=== PATIENT | male | born 1930 | race Caucasian/White ===

== ENCOUNTER 2017-11-18 20:05 | Inpatient (IN) | payer MEDICARE ==
[~2017-11-18 20:05] MED LIST: ISOVUE-370 76%-LOCM 1 ML ONE
[2017-11-18] MEDS ORDERED: Nitroglycerin 0.4 MG TAB (25 Tab Bottle) ONE (21:38)
[2017-11-18 22:05] LABS: CKMB 0.7 ng/mL (0-6.6); Troponin I Less than 0.010 ng/mL (< 0.028)
[2017-11-18] MEDS ORDERED: Azithromycin 500 MG VIAL ONE (22:17)
[2017-11-18 22:46] LABS: Bilirubin Negative (Negative); Blood, Urine Trace (Negative); Clarity CLEAR (Clear); Glucose, Urine (Dipstick) Negative (Negative); Leukocyte Negative (Negative); Nitrite Negative (Negative); Protein, Urine (Dipstick) Negative (Neg-Trace); Urobilinogen 0.2 mg/dL (0.2-1.0)
[2017-11-18 22:49] LABS: Bacteria/HPF None Seen HPF (None Seen); Hyaline Casts/LPF 0-3 HYALINE CAST LPF (0-3 Hyaline); Pathc Cast-AUWi Flag 0.14 (0-2.49); RBC/HPF 0-3 HPF (0-3); Squamous Epithelial None Seen HPF (0-3); WBC/HPF None Seen HPF (0-3)
--- NOTE | 2017-11-18 23:09 | CT ---
CT ABDOMEN AND PELVIS WITH CONTRAST 11/18/17 COMPARISON: None. HISTORY: Difficulty breathing. Abdominal swelling. TECHNIQUE: Multiple contiguous axial images were obtained in a CT of the abdomen and pelvis with contrast. Coron al reformats were performed. FINDINGS: The gallbladder is not seen and is either contracted or has been removed. There are nonobstructing ca lcifications in both kidneys. These calcifications may be vascular. Evaluation is limited secondary t o motion artifacts. The adrenal glands, spleen, and pancreas are unremarkable. No free air, free flui d, or stranding changes are seen in the abdomen or pelvis. There is scattered diverticula in the colon. The small bowel is normal in caliber without significant dilation. The appendix is not definitely seen. The prostate is enlarged. No abdominal or pelvis lymphadenopathy. Atherosclerotic calcifications are seen in the aorta. Air space opacity is seen in the right middle and lower lobes consistent with right sided infiltrates . No pleural effusion is seen. Degenerative changes are seen in the spine. The abdominal wall soft ti ssues are unremarkable. IMPRESSION: 1. No evidence of acute intra-abdominal/pelvic abnormality. 2. Diverticulosis. 3. Right sided multifocal pneumonia. POS: [facility]
[2017-11-19] MEDS ORDERED: Acetaminophen 325 MG TAB PO PRN (00:50)
[2017-11-19] MEDS ORDERED: Guaifenesin DM 100-10/5 ML UDCUP PO PRN (00:50)
[2017-11-19] MEDS ORDERED: Ondansetron HCl/PF 4 MG/2 ML Vial IVP PRN (00:50)
[2017-11-19] MEDS ORDERED: Senokot 8.6 MG TAB PO PRN (00:50)
[2017-11-19] MEDS ORDERED: Azithromycin 500 MG in Sodium Chloride 0.9% 250 ML 250 ML IVPB SCH ×2 (01:00→01:30)
[2017-11-19 01:11] VITALS: BMI 22.5
[2017-11-19] MEDS: cefTRIAXone\\ROCEPHIN 1 GM in Sodium Chloride 0.9% 100 ML IVPB SCH (01:29)
--- NOTE | 2017-11-19 05:15 | HP ---
REASON FOR ADMISSION: Pneumonia, chronic obstructive pulmonary disease exacerbation. 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 He also developed shaking chills. He felt nauseated the whole day. He tried taking Symbicort inhaler and albuterol inhaler at home, which did not give him any relief. Finally, he was taken to [facility], from where he was transferred here. No complaints of fever but had temperature of 100 degrees at [facility]. Has cough with expectoration of clear sputum per patient. Does not see a travel occupational therapist on the outside. PAST MEDICAL AND SURGICAL HISTORY: History of COPD, hypertension, dyslipidemia , benign prostatic hypertrophy, CABG done in 2007, cholecystectomy, appendectomy , tonsillectomy. CURRENT MEDICATIONS: Patient is on aspirin 81 mg p.o. daily, Norvasc 5 mg p.o. daily, Coreg 6.25 mg p.o. twice daily, atorvastatin 80 mg p.o. daily, Flomax 0.4 mg p.o. daily, isosorbide mononitrate 120 mg twice daily, Nexium 40 mg daily , lisinopril 10 mg q.p.m. ALLERGIES: PHENYLEPHRINE. PERSONAL HISTORY: Quit smoking in the year 1999, but has smoked nearly a pack and a half per day for more than 40 years. Does not abuse alcohol or drugs and lives with his daughter. FAMILY HISTORY: Mother lived up to 72 years and of old age. Father got killed in a motor vehicle accident at the age of 52 years. CODE STATUS: FULL. Power of district attorney, Ms. Cheryl Batista. REVIEW OF SYSTEMS: The following complete review of systems was negative, unless otherwise mentioned in the HPI or below: Constitutional: Weight loss or gain, ability to conduct usual activities. Skin: Rash, itching. Eyes: Double vision, pain. ENT/Mouth: Nose bleeding, neck stiffness, pain, tenderness. Cardiovascular: Palpitations, dyspnea on exertion, orthopnea. Respiratory: Shortness of breath, wheezing, cough, hemoptysis, fever, or night sweats. Gastrointestinal: Poor appetite, abdominal pain, heartburn, nausea, vomiting, constipation, or diarrhea. Genitourinary: Urgency, frequency, dysuria, nocturia. Musculoskeletal: Pain, swelling. Neurologic/Psychiatric: Anxiety, depression. Allergy/Immunologic: Skin rash, bleeding tendency. PHYSICAL EXAMINATION: GENERAL: Patient is an 87-year-old male who is currently not in any acute distress. VITAL SIGNS: Blood pressure 126/62, pulse 100 per minute, respiratory rate 20 per minute, temperature 97.5 degrees here and was 100 degrees at [facility] , saturating 92% on room air. NECK: Supple, no elevated JVD. HEENT: Eyes, extraocular muscles intact. Pupils reacting to light. Oral cavity mucous membranes are moist. No exudates or congestion. CARDIOVASCULAR SYSTEM: S1, S2 heard. Regular rhythm. RESPIRATORY SYSTEM: Air entry 1+ bilateral. Scattered wheezes plus bilaterally. ABDOMEN: Soft, bowel sounds heard. No tenderness, rigidity, or guarding. EXTREMITIES: No peripheral edema or calf tenderness. VASCULAR SYSTEM: Peripheral pulses 1+ bilateral. No ischemic ulcerations or gangrene. CENTRAL NERVOUS SYSTEM: No gross focal deficits noted. Patient is alert, awake , and oriented well. PSYCHIATRIC SYSTEM: Patient's mood is euthymic. No hallucinations or delusions. LABORATORY DATA AND X-RAY FINDINGS: CT of the abdomen and pelvis done shows no acute abnormality in the abdomen or pelvis, but he was incidentally noted to have right-sided multifocal pneumonia. There is also diverticulosis. Single- view chest x-ray done showed no acute cardiopulmonary abnormalities. Troponin x2 is negative. Total bilirubin 1.9, BNP 143. AST, ALT within normal limits. Albumin 3.8, serum bicarbonate 21, BUN 18, creatinine 0.9, glucose 106. Lactic acid is 2.6. CK-MB is 0.9, magnesium is 1.2. White count of 13, H&H 13 and 40 , platelet count 193 with 88% neutrophils, MCV is 90. CLINICAL IMPRESSION AND PLAN: Patient will be admitted to medical floor for right lung pneumonia with mild chronic obstructive pulmonary disease exacerbation as well. He will be placed on ceftriaxone and Zithromax. Patient has heavy history of smoking in the past. He is not on home oxygen or steroids. He rarely uses albuterol inhalers at home. In view of this, he will be on DuoNebs q.6 hourly. We will also consult Dr. Castañeda who is on-call for Pulmonology. We will continue his aspirin, Lipitor, Norvasc, Imdur, Flomax as before. We will continue to closely monitor him on medical floor. I have given complete updates to patient's daughter, Ms. Luna who is here at bedside. Please note I have seen and examined patient on 11/18/2017 Code status was discussed and he is a FULL CODE for now. MATT
[2017-11-19 05:24] LABS: Anion Gap 15 mmol/L (10-20); BUN (Urea Nitrogen) 16 mg/dL (8.4-25.7); Calc. Creatinine Clearance 50 mL/min (70-130); Calcium 8.9 mg/dL (7.8-10.44); Carbon Dioxide 25 mmol/L (23-31); Chloride 95 mmol/L (98-107); Estimated GFR-MDRD 75; Glucose 89 mg/dL (83-110); Potassium 4.2 mmol/L (3.5-5.1); Sodium 131 mmol/L (136-145)
[2017-11-19 06:02] LABS: Legionella Urinary Ag Negative (Negative); Strep pneumo Urine Ag NEGATIVE (NEGATIVE)
[2017-11-19 06:09] LABS: Band 28 % (5-11); Hemoglobin 14.3 g/dL (14.0-18.0); Lymphocytes 5 % (21-51); MDiff Complete? YES; Mean Corpuscular HGB CONC 33.7 g/dL (32.0-36.0); Mean Corpuscular Hemoglobin 32.6 pg (27.0-31.0); Mean Corpuscular Volume 96.9 fl (80.0-94.0); Mean Platelet Volume 6.7 fL (7.4-10.4); Monocytes 3 % (0-10); Neutrophil 64 % (42-75); Platelet Count 196 thou/uL (130-400); RBC Distribution Width 12.3 % (11.5-14.5); Red Blood Cell (RBC) Count 4.38 mill/uL (4.70-6.10); White Blood Cell (WBC) Count 19.2 thou/uL (4.8-10.8)
[2017-11-19] MEDS: Atorvastatin Calcium 40 MG TAB PO SCH (08:47)
[2017-11-19] MEDS: Carvedilol 6.25 MG TAB PO SCH ×2 (08:47→17:29)
[2017-11-19] MEDS: Polyethylene Glycol 3350 17 GM Packet PO SCH (08:47)
[2017-11-19] MEDS: Aspirin 81 mg Enteric Coated Tablet PO SCH (08:47)
[2017-11-19] MEDS: Tamsulosin HCl 0.4 MG CAP PO SCH (08:47)
[2017-11-19] MEDS: Enoxaparin Sodium 40 MG/0.4 ML SYRINGE SC SCH (08:47)
[2017-11-19] MEDS: Senokot S 8.6-50 MG TAB PO SCH (08:48)
[2017-11-19] MEDS: Amlodipine 5 MG TAB PO SCH (08:48)
[2017-11-19] MEDS ORDERED: Famotidine 20 MG TAB PO SCH ×2 (09:00)
[2017-11-19] MEDS ORDERED: Carvedilol 25 MG TAB PO SCH (09:00)
[2017-11-19] MEDS ORDERED: Albuterol Sulfate 2.5 mg/3 ml Neb NEB PRN (10:03)
--- NOTE | 2017-11-19 10:04 | PDOC.PN ---
- Subjective Encounter Start Date: 11/19/17 Encounter Start Time: 10:08 patient seen and examined following overnight admission for acute hypoxic respiratory failure/multifocal PNA and COPD. Doing much better this a.m. Has no complaints and no acute overnight events. - Objective Resuscitation Status: Resuscitation Status FULL:Full Resuscitation MAR Reviewed: Yes Vital Signs & Weight: Vital Signs (12 hours) Temp Pulse Resp BP Pulse Ox 11/19/17 08:55 98.9 F 100 22 H 143/74 H 95 11/19/17 08:48 95 11/19/17 08:00 98.9 F 100 22 H 95 11/19/17 06:34 95 16 92 L 11/19/17 04:42 99 F 100 16 147/65 H 11/19/17 01:16 92 14 95 11/18/17 23:59 99.2 F 101 H 20 136/68 92 L 11/18/17 23:45 99.2 F 101 H 20 92 L Weight Weight 148 lb I&O: 11/18/17 11/19/17 11/20/17 06:59 06:59 06:59 Intake Total 580 Output Total 350 Balance 230 Result Diagrams: 11/19/17 00:56 11/19/17 00:56 Phys Exam - Physical Examination Constitutional: NAD HEENT: PERRLA, moist MMs, sclera anicteric, oral pharynx no lesions Neck: no nodes, no JVD, supple, full ROM Respiratory: no wheezing, no rhonchi Reduced breath sounds b/l with mild rales Cardiovascular: RRR, no significant murmur, no rub Gastrointestinal: soft, non-tender, no distention, positive bowel sounds Musculoskeletal: no edema, pulses present Neurological: non-focal, moves all 4 limbs Psychiatric: normal affect, A&O x 3 Dx/Plan (1) Acute respiratory failure with hypoxia Code(s): J96.01 - ACUTE RESPIRATORY FAILURE WITH HYPOXIA Status: Acute Comment: 2/2 multifocal PNA. (2) Multifocal pneumonia Code(s): J18.9 - PNEUMONIA, UNSPECIFIED ORGANISM Status: Acute Comment: R sided. (3) COPD (chronic obstructive pulmonary disease) Status: Chronic Qualifiers: COPD type: unspecified COPD Qualified Code(s): J44.9 - Chronic obstructive pulmonary disease, unspecified (4) HTN (hypertension) Code(s): I10 - ESSENTIAL (PRIMARY) HYPERTENSION Status: Chronic Qualifiers: Hypertension type: essential hypertension Qualified Code(s): I10 - Essential (primary) hypertension (5) BPH (benign prostatic hyperplasia) Code(s): N40.0 - BENIGN PROSTATIC HYPERPLASIA WITHOUT LOWER URINRY TRACT SYMP Status: Chronic Qualifiers: Lower urinary tract symptom presence: symptoms absent Qualified Code(s): N40.0 - Benign prostatic hyperplasia without lower urinary tract symptoms (6) CAD (coronary artery disease) Code(s): I25.10 - ATHSCL HEART DISEASE OF [place] CORONARY ARTERY W/O ANG PCTRS Status: Chronic Qualifiers: Coronary Disease-Associated Artery/Lesion type: bypass graft [place] vs. transplanted heart: [place] heart Associated angina: without angina Qualified Code(s): I25.810 - Atherosclerosis of coronary artery bypass graft(s) without angina pectoris (7) Hyponatremia Code(s): E87.1 - HYPO-OSMOLALITY AND HYPONATREMIA Status: Acute Comment: Asymptomatic. likely 2/2 pngoing pulmonary infection. - Plan cont current plan of care, plan discussed w/ family, continue antibiotics, PT/OT , respiratory therapy, DVT proph w/lovenox Continue Azithromycin, Ceftriaxone, O2 supplementation. f/u blood cultures. Wean off O2 Start parenteral steroids Review of Systems - Medications/Allergies Allergies/Adverse Reactions: Allergies Allergy/AdvReac Type Severity Reaction Status Date / Time phenylephrine AdvReac Intermediate Verified 11/19/17 01:21 tamsulosin [From Flomax] AdvReac Mild ITCHING Verified 11/19/17 00:20 Medications: Current Medications Acetaminophen (Tylenol) 650 mg PO Q4H PRN PRN Reason: Headache/Fever or Pain Albuterol/Ipratropium (Duoneb) 3 ml NEB [id number] [facility] Last Admin: 11/19/17 06:34 Dose: 3 ml Amlodipine Besylate (Norvasc) 5 mg PO DAILY [facility] Last Admin: 11/19/17 08:48 Dose: 5 mg Aspirin (Ecotrin) 81 mg PO DAILY [facility] Last Admin: 11/19/17 08:47 Dose: 81 mg Atorvastatin Calcium (Lipitor) 80 mg PO DAILY [facility] Last Admin: 11/19/17 08:47 Dose: 80 mg Carvedilol (Coreg) 6.25 mg PO BID-[facility] Last Admin: 11/19/17 08:47 Dose: 6.25 mg Enoxaparin Sodium (Lovenox) 40 mg SC 0900 [facility] Last Admin: 11/19/17 08:47 Dose: 40 mg Famotidine (Pepcid) 20 mg PO BID [facility] Last Admin: 11/19/17 08:47 Dose: 20 mg Guaifenesin/Dextromethorphan (Robitussin Dm) 15 ml PO Q4H PRN PRN Reason: Cough Ceftriaxone Sodium 1 gm/ (Sodium Chloride) 100 mls @ 200 mls/hr IVPB Q24HR [facility] Last Admin: 11/19/17 01:29 Dose: 100 mls Azithromycin 500 mg/ Sodium (Chloride) 250 mls @ 250 mls/hr IVPB 2200 [facility] Isosorbide Mononitrate (Imdur) 120 mg PO BID [facility] Last Admin: 11/19/17 08:47 Dose: 120 mg Ondansetron HCl (Zofran) 4 mg IVP Q6H PRN PRN Reason: Nausea/Vomiting Polyethylene Glycol (Miralax) 17 gm PO DAILY [facility] Last Admin: 11/19/17 08:47 Dose: 17 gm Senna (Senokot) 2 tab PO HSPRN PRN PRN Reason: Constipation Senna/Docusate Sodium (Senokot S) 1 tab PO DAILY [facility] Last Admin: 11/19/17 08:48 Dose: 1 tab Tamsulosin HCl (Flomax) 0.4 mg PO DAILY [facility] Last Admin: 11/19/17 08:47 Dose: 0.4 mg
--- NOTE | 2017-11-19 10:50 | CON ---
DATE OF CONSULTATION: 10/23/2017 70 minutes of time was spent performing this consultation. Of that 70 minutes, greater than 50% of t he time was spent with the patient and/or on the patient's unit in the hospital. REASON FOR CONSULTATION: Pneumonia and COPD. HISTORY OF PRESENT ILLNESS: Mr. 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 He a lso initially had abdominal pain, which has since dissipated. On presentation, he had a temperature of 100. A CT of the abdomen was performed. That CT also encompassed some cuts in the lower lung whi ch showed a diffuse right middle lobe pneumonia. He has been told in the past that he has COPD. He has been using Symbicort in a piecemeal fashion as he cannot afford to use the medication regularly. He smoked 1 pack a day on average between 1947 an d 1999 at which time he quit. He has never been hospitalized for COPD exacerbation in the past. PAST MEDICAL HISTORY: 1. COPD. 2. Hypertension. 3. Hyperlipidemia. 4. Prostatic hypertrophy. PAST SURGICAL HISTORY: 1. Coronary bypass grafting surgery. 2. Cholecystectomy. 3. Appendectomy. 4. Tonsillectomy. MEDICATIONS PRIOR TO ADMISSION: Aspirin 81 mg daily, Norvasc 5 mg daily, Coreg 6.25 mg b.i.d., atorv astatin 80 mg daily, Flomax 0.4 mg daily, isosorbide mononitrate 120 mg daily, Nexium 40 mg daily, li sinopril 10 mg daily, Symbicort 2 puffs q.12h., although he is not using it that often. ALLERGIES: PHENYLEPHRINE. SOCIAL HISTORY: Smoking history as outlined above. He does not consume alcohol. He lives at home w ith his daughter. He is able to perform all activities of daily living including driving. FAMILY MEDICAL HISTORY: Mother of old age at 72. Father get killed in a motor vehicle accident at age 52. REVIEW OF SYSTEMS: Neurologically he has had some numbness in his left fifth finger. He denies any fever, chills, nausea, vomiting, hematemesis, melena, hematochezia, hematuria, or dysuria. Remaining 12-point review of systems are negative. PHYSICAL EXAMINATION: VITAL SIGNS: Temperature 98.9, pulse 100, respirations 22, O2 sat 95% on 2 liters, blood pressure 14 3/74. GENERAL: He is an elderly male. He is lying in bed. He does not appear to be in any respiratory di stress. He speaks in complete sentences without difficulty. HEENT: Pupils react. Sclerae icteric. Oropharynx clear. NECK: No adenopathy, no JVD, no bruits, no thyromegaly. LUNGS: He has some inspiratory crackles over the right middle lobe, best heard anteriorly. He has a few crackles in the right base posteriorly. Left side is clear. CARDIAC: S1, S2, slightly tachycardic without audible murmur, rub, or gallop. ABDOMEN: Soft, nontender, no hepatosplenomegaly. EXTREMITIES: No clubbing, cyanosis, or edema. NEUROLOGIC: Grossly intact throughout. SKIN: Shows no obvious lesions. LABORATORY DATA: White blood cell 19.2, hematocrit 42.4, platelet count 196 with 64% neutrophils, 28 % bands. Sodium 131, potassium 4.2, chloride 95, CO2 25, BUN 16, creatinine 0.9, glucose 89. The chest x-ray and CT scan were reviewed personally by myself. ASSESSMENT: 1. Right middle lobe/right lower lobe pneumonia. 2. Acute hypoxic respiratory failure. 3. Chronic obstructive pulmonary disease, which is minimally exacerbated. RECOMMENDATIONS: I have reviewed the orders. I agree with the broad spectrum IV antibiotics includi ng azithromycin and ceftriaxone. Nebulization treatments as needed. Low flow oxygen. I do not thin k the patient needs oral steroid or IV steroids at this time. I will follow with you.
[2017-11-19] MEDS: Mometasone/Formoterol 120 PUFF INHALER INH SCH (19:25)
[2017-11-19] MEDS: Azithromycin 500 MG in Sodium Chloride 0.9% 250 ML 250 ML IVPB SCH (22:07)
[2017-11-20] MEDS: cefTRIAXone\\ROCEPHIN 1 GM in Sodium Chloride 0.9% 100 ML IVPB SCH (00:04)
[2017-11-20] MEDS: Mometasone/Formoterol 120 PUFF INHALER INH SCH ×2 (06:34→18:43)
[2017-11-20] MEDS: Carvedilol 6.25 MG TAB PO SCH ×2 (08:48→18:07)
[2017-11-20] MEDS: Polyethylene Glycol 3350 17 GM Packet PO SCH (08:48)
[2017-11-20] MEDS: Enoxaparin Sodium 40 MG/0.4 ML SYRINGE SC SCH (08:48)
[2017-11-20] MEDS: Aspirin 81 mg Enteric Coated Tablet PO SCH (08:49)
[2017-11-20] MEDS: Atorvastatin Calcium 40 MG TAB PO SCH (08:49)
[2017-11-20] MEDS: Tamsulosin HCl 0.4 MG CAP PO SCH (08:49)
[2017-11-20] MEDS: Amlodipine 5 MG TAB PO SCH (08:50)
[2017-11-20] MEDS: Famotidine 20 MG TAB PO SCH (08:50)
[2017-11-20] MEDS: Senokot S 8.6-50 MG TAB PO SCH (08:50)
--- NOTE | 2017-11-20 13:05 | PRG ---
DATE OF SERVICE: 11/20/2017 SUBJECTIVE: The patient is feeling better today. He is still coughing up copious sputum and occasio macie having some hemoptysis. PHYSICAL EXAMINATION: VITAL SIGNS: On exam, his temperature 98.9, pulse 78, blood pressure 124/59, O2 sat 94% on 3 liters. HEENT: Unremarkable. NECK: No JVD. LUNGS: He has in the right middle lobe area. CARDIAC: S1 and S2 regular. ABDOMEN: Soft. EXTREMITIES: No edema. LABORATORY DATA: No new labs were done today. ASSESSMENT: 1. Pneumonia. 2. Acute hypoxic respiratory failure. RECOMMENDATIONS: Continue antibiotics, oxygen, and nebulizer therapy.
--- NOTE | 2017-11-20 14:12 | PDOC.PN ---
- Subjective Encounter Start Date: 11/20/17 Encounter Start Time: 12:30 Subjective: pt up in bed no problems - Objective Resuscitation Status: Resuscitation Status FULL:Full Resuscitation Vital Signs & Weight: Vital Signs (12 hours) Temp Pulse Resp BP Pulse Ox 11/20/17 08:50 98 124/59 L 11/20/17 08:48 124/59 L 11/20/17 08:00 99.0 F 98 18 91 L 11/20/17 06:34 87 16 94 L 11/20/17 06:32 85 16 94 L Weight Weight 148 lb I&O: 11/19/17 11/20/17 11/21/17 06:59 06:59 06:59 Intake Total 580 1830 Output Total 350 Balance 230 1830 Result Diagrams: 11/19/17 00:56 11/19/17 00:56 Phys Exam - Physical Examination HEENT: PERRLA, moist MMs, sclera anicteric, TM's clear, oral pharynx no lesions , 2+ tonsils Neck: no nodes, no JVD, supple, full ROM Respiratory: no wheezing, no rales, no rhonchi, wheezing present, clear to auscultation bilateral Cardiovascular: RRR, no significant murmur, no rub, gallop, irregular Gastrointestinal: soft, non-tender, no distention, positive bowel sounds Musculoskeletal: no edema, pulses present, edema present Dx/Plan - Plan (1) Acute respiratory failure with hypoxia (2) Multifocal pneumonia (3) COPD (chronic obstructive pulmonary disease) (4) HTN (hypertension) (5) BPH (benign prostatic hyperplasia) (6) CAD (coronary artery disease) (7) Hyponatremia 8) mild leukocytosis plan: will continue duonebs and abx for pna. Pt has right sided pna and states at times he does cough when he eats. will get a speech eval. Also pt states that he has been not using his symbicort since he cannot afford it. will discontinue his steroids he has no wheezing on exam. will also check echo since pt has been feeling fatigue for the past month. * . Review of Systems - Review of Systems Constitutional: negative: fever, chills, sweats, weakness, malaise, other Eyes: negative: Pain, Vision Change, Conjunctivae Inflammation, Eyelid Inflammation, Redness, Other ENT: negative: Ear Pain, Ear Discharge, Nose Pain, Nose Discharge, Nose Congestion, Mouth Pain, Mouth Swelling, Throat Pain, Throat Swelling, Other Respiratory: Cough, Sputum Cardiovascular: negative: chest pain, palpitations, orthopnea, paroxysmal nocturnal dyspnea, edema, light headedness, other Gastrointestinal: negative: Nausea, Vomiting, Abdominal Pain, Diarrhea, Constipation, Melena, Hematochezia, Other Genitourinary: negative: Dysuria, Frequency, Incontinence, Hematuria, Retention , Other Musculoskeletal: negative: Neck Pain, Shoulder Pain, Arm Pain, Back Pain, Hand Pain, Leg Pain, Foot Pain, Other - Medications/Allergies Allergies/Adverse Reactions: Allergies Allergy/AdvReac Type Severity Reaction Status Date / Time phenylephrine AdvReac Intermediate Verified 11/19/17 01:21 tamsulosin [From Flomax] AdvReac Mild ITCHING Verified 11/19/17 00:20 Medications: Current Medications Acetaminophen (Tylenol) 650 mg PO Q4H PRN PRN Reason: Headache/Fever or Pain Albuterol Sulfate (Ventolin) 2.5 mg NEB [id number] PRN PRN Reason: Wheezing Albuterol/Ipratropium (Duoneb) 3 ml NEB [id number] [facility] Last Admin: 11/20/17 14:02 Dose: Not Given Amlodipine Besylate (Norvasc) 5 mg PO DAILY [facility] Last Admin: 11/20/17 08:50 Dose: 5 mg Aspirin (Ecotrin) 81 mg PO DAILY [facility] Last Admin: 11/20/17 08:49 Dose: 81 mg Atorvastatin Calcium (Lipitor) 80 mg PO DAILY [facility] Last Admin: 11/20/17 08:49 Dose: 80 mg Carvedilol (Coreg) 6.25 mg PO BID-[facility] Last Admin: 11/20/17 08:48 Dose: 6.25 mg Enoxaparin Sodium (Lovenox) 40 mg SC 0900 [facility] Last Admin: 11/20/17 08:48 Dose: 40 mg Famotidine (Pepcid) 20 mg PO DAILY [facility] Last Admin: 11/20/17 08:50 Dose: 20 mg Guaifenesin/Dextromethorphan (Robitussin Dm) 15 ml PO Q4H PRN PRN Reason: Cough Ceftriaxone Sodium 1 gm/ (Sodium Chloride) 100 mls @ 200 mls/hr IVPB Q24HR [facility] Last Admin: 11/20/17 00:04 Dose: 100 mls Azithromycin 500 mg/ Sodium (Chloride) 250 mls @ 250 mls/hr IVPB 2200 [facility] Last Admin: 11/19/17 22:07 Dose: 250 mls Isosorbide Mononitrate (Imdur) 120 mg PO BID [facility] Last Admin: 11/20/17 08:49 Dose: 120 mg Mometasone Furoate/Formoterol Fumar (Dulera 200 Mcg/5 Mcg Inhaler) 2 puff INH BID-RT [facility] Last Admin: 11/20/17 06:34 Dose: 2 puff Ondansetron HCl (Zofran) 4 mg IVP Q6H PRN PRN Reason: Nausea/Vomiting Polyethylene Glycol (Miralax) 17 gm PO DAILY [facility] Last Admin: 11/20/17 08:48 Dose: 17 gm Senna (Senokot) 2 tab PO HSPRN PRN PRN Reason: Constipation Senna/Docusate Sodium (Senokot S) 1 tab PO DAILY [facility] Last Admin: 11/20/17 08:50 Dose: 1 tab Sodium Chloride (Flush - Normal Saline) 10 ml IVF Q12HR [facility] Last Admin: 11/20/17 08:48 Dose: 10 ml Sodium Chloride (Flush - Normal Saline) 10 ml IVF PRN PRN PRN Reason: Saline Flush Tamsulosin HCl (Flomax) 0.4 mg PO DAILY [facility] Last Admin: 11/20/17 08:49 Dose: 0.4 mg
[2017-11-20] MEDS: Azithromycin 500 MG in Sodium Chloride 0.9% 250 ML 250 ML IVPB SCH (21:04)
[2017-11-21] MEDS: cefTRIAXone\\ROCEPHIN 1 GM in Sodium Chloride 0.9% 100 ML IVPB SCH (00:45)
[2017-11-21] MEDS ORDERED: Nitroglycerin 0.4 MG TAB (25 Tab Bottle) SL PRN (03:58)
[2017-11-21] MEDS: Polyethylene Glycol 3350 17 GM Packet PO SCH (09:10)
[2017-11-21] MEDS: Enoxaparin Sodium 40 MG/0.4 ML SYRINGE SC SCH (09:10)
[2017-11-21] MEDS: Aspirin 81 mg Enteric Coated Tablet PO SCH (09:10)
[2017-11-21 09:11] LABS: Anion Gap 13 mmol/L (10-20); BUN (Urea Nitrogen) 16 mg/dL (8.4-25.7); Calc. Creatinine Clearance 63 mL/min (70-130); Calcium 9.2 mg/dL (7.8-10.44); Carbon Dioxide 24 mmol/L (23-31); Chloride 99 mmol/L (98-107); Estimated GFR-MDRD Greater than 90; Glucose 133 mg/dL (83-110); Potassium 4.5 mmol/L (3.5-5.1); Sodium 131 mmol/L (136-145)
[2017-11-21] MEDS: Carvedilol 6.25 MG TAB PO SCH ×2 (09:11→19:37)
[2017-11-21] MEDS: Amlodipine 5 MG TAB PO SCH (09:11)
[2017-11-21] MEDS: Senokot S 8.6-50 MG TAB PO SCH (09:11)
[2017-11-21] MEDS: Tamsulosin HCl 0.4 MG CAP PO SCH (09:11)
[2017-11-21] MEDS: Famotidine 20 MG TAB PO SCH (09:12)
[2017-11-21] MEDS: Mometasone/Formoterol 120 PUFF INHALER INH SCH ×2 (09:41→18:46)
[2017-11-21] MEDS: Atorvastatin Calcium 40 MG TAB PO SCH (09:53)
--- NOTE | 2017-11-21 10:19 | PRG ---
DATE OF SERVICE: 11/21/2017 SUBJECTIVE: The patient is doing better, had no acute complaints. PHYSICAL EXAMINATION: VITAL SIGNS: Temperature is 97.7, pulse 83, blood pressure 148/67, O2 saturation is 96% on 2 liters. HEENT: Unremarkable. NECK: No JVD. LUNGS: Diminished crackles in both bases. CARDIAC: S1 and S2 regular. ABDOMEN: Soft. EXTREMITIES: No edema. LABORATORY DATA: Sodium 131, potassium 4.5, chloride 99, CO2 24, BUN 16, creatinine 0.7, glucose 133 . ASSESSMENT: 1. Community-acquired pneumonia. 2. Acute hypoxic respiratory failure. PLAN: He can be switched over to oral antibiotics. I think he is probably ready to go home if he ca n maintain adequate sats off oxygen. His oxygen has been taken off this morning and his levels will be rechecked this afternoon. He can follow up in the office me in 3-4 weeks with a chest x-ray.
[2017-11-21 10:30] LABS: Band 8 % (5-11); Lymphocytes 5 % (21-51); MDiff Complete? YES; Macrocytosis SLIGHT = 6-15 cells (100X) (0-5/hpf); Mean Corpuscular HGB CONC 33.9 g/dL (32.0-36.0); Mean Corpuscular Volume 97.4 fl (80.0-94.0); Mean Platelet Volume 7.1 fL (7.4-10.4); Monocytes 5 % (0-10); Neutrophil 82 % (42-75); Platelet Count 209 thou/uL (130-400); RBC Distribution Width 11.9 % (11.5-14.5); Red Blood Cell (RBC) Count 3.94 mill/uL (4.70-6.10); White Blood Cell (WBC) Count 13.3 thou/uL (4.8-10.8)
[2017-11-21] MEDS ORDERED: Bisacodyl 10 MG SUPP PR PRN (20:08)
--- NOTE | 2017-11-21 20:42 | PDOC.PN ---
- Subjective Encounter Start Date: 11/21/17 Encounter Start Time: 09:15 Subjective: pt up in chair no complains - Objective Resuscitation Status: Resuscitation Status FULL:Full Resuscitation Vital Signs & Weight: Vital Signs (12 hours) Temp Pulse Resp BP BP Pulse Ox 11/21/17 19:51 97.7 F 87 16 96 11/21/17 19:37 159/67 H 11/21/17 18:51 97.7 F 87 16 159/67 H 96 11/21/17 18:45 80 20 11/21/17 15:43 81 20 93 L 11/21/17 11:33 91 L 11/21/17 09:41 82 20 94 L 11/21/17 09:27 82 20 94 L 11/21/17 09:11 73 148/67 H Weight Weight 148 lb I&O: 11/20/17 11/21/17 11/22/17 06:59 06:59 06:59 Intake Total 1830 490 800 Balance 1830 490 800 Result Diagrams: 11/21/17 08:41 11/21/17 08:41 Phys Exam - Physical Examination HEENT: PERRLA, moist MMs, sclera anicteric, TM's clear, oral pharynx no lesions , 2+ tonsils Neck: no nodes, no JVD, supple, full ROM decreased breath sound right lower lung Cardiovascular: RRR, no significant murmur, no rub, gallop, irregular Gastrointestinal: soft, non-tender, no distention, positive bowel sounds Musculoskeletal: no edema, pulses present, edema present Dx/Plan - Plan (1) Acute respiratory failure with hypoxia (2) Multifocal pneumonia (3) COPD (chronic obstructive pulmonary disease) (4) HTN (hypertension) (5) BPH (benign prostatic hyperplasia) (6) CAD (coronary artery disease) (7) Hyponatremia 8) mild leukocytosis plan: will continue duonebs and abx for pna. Pt has right sided pna and states at times he does cough when he eats. will get a speech eval. Also pt states that he has been not using his symbicort since he cannot afford it. will discontinue his steroids he has no wheezing on exam. will also check echo since pt has been feeling fatigue for the past month. 11/21 pt continues to do well. echo indicated 50-55%. possible discharge home in am if tolerates being off oxygen. will consult PT. * . Review of Systems - Review of Systems Eyes: negative: Pain, Vision Change, Conjunctivae Inflammation, Eyelid Inflammation, Redness, Other ENT: negative: Ear Pain, Ear Discharge, Nose Pain, Nose Discharge, Nose Congestion, Mouth Pain, Mouth Swelling, Throat Pain, Throat Swelling, Other Respiratory: negative: Cough, Dry, Shortness of Breath, Hemoptysis, SOB with Excertion, Pleuritic Pain, Sputum, Wheezing Cardiovascular: negative: chest pain, palpitations, orthopnea, paroxysmal nocturnal dyspnea, edema, light headedness, other Gastrointestinal: negative: Nausea, Vomiting, Abdominal Pain, Diarrhea, Constipation, Melena, Hematochezia, Other Genitourinary: negative: Dysuria, Frequency, Incontinence, Hematuria, Retention , Other Musculoskeletal: negative: Neck Pain, Shoulder Pain, Arm Pain, Back Pain, Hand Pain, Leg Pain, Foot Pain, Other - Medications/Allergies Allergies/Adverse Reactions: Allergies Allergy/AdvReac Type Severity Reaction Status Date / Time phenylephrine AdvReac Intermediate Verified 11/19/17 01:21 tamsulosin [From Flomax] AdvReac Mild ITCHING Verified 11/19/17 00:20 Medications: Current Medications Acetaminophen (Tylenol) 650 mg PO Q4H PRN PRN Reason: Headache/Fever or Pain Albuterol Sulfate (Ventolin) 2.5 mg NEB [id number] PRN PRN Reason: Wheezing Albuterol/Ipratropium (Duoneb) 3 ml NEB [id number] [facility] Last Admin: 11/21/17 18:45 Dose: 3 ml Amlodipine Besylate (Norvasc) 5 mg PO DAILY [facility] Last Admin: 11/21/17 09:11 Dose: 5 mg Aspirin (Ecotrin) 81 mg PO DAILY [facility] Last Admin: 11/21/17 09:10 Dose: 81 mg Atorvastatin Calcium (Lipitor) 80 mg PO HS [facility] Last Admin: 11/21/17 20:13 Dose: 80 mg Azithromycin (Zithromax) 250 mg PO DAILY [facility] Stop: 11/25/17 09:01 Bisacodyl (Dulcolax) 10 mg ID DAILYPRN PRN PRN Reason: Constipation Last Admin: 11/21/17 20:15 Dose: 10 mg Carvedilol (Coreg) 6.25 mg PO BID[facility] Last Admin: 11/21/17 19:37 Dose: 6.25 mg Cefdinir (Omnicef) 600 mg PO DAILY [facility] Enoxaparin Sodium (Lovenox) 40 mg SC 0900 [facility] Last Admin: 11/21/17 09:10 Dose: 40 mg Famotidine (Pepcid) 20 mg PO DAILY [facility] Last Admin: 11/21/17 09:12 Dose: 20 mg Guaifenesin/Dextromethorphan (Robitussin Dm) 15 ml PO Q4H PRN PRN Reason: Cough Isosorbide Mononitrate (Imdur) 120 mg PO BID [facility] Last Admin: 11/21/17 20:13 Dose: 120 mg Mometasone Furoate/Formoterol Fumar (Dulera 200 Mcg/5 Mcg Inhaler) 2 puff INH BID-RT [facility] Last Admin: 11/21/17 18:46 Dose: 2 puff Nitroglycerin (Nitrostat) 0.4 mg SL Q5MIN PRN PRN Reason: Chest Pain Last Admin: 11/21/17 04:00 Dose: 0.4 mg Ondansetron HCl (Zofran) 4 mg IVP Q6H PRN PRN Reason: Nausea/Vomiting Polyethylene Glycol (Miralax) 17 gm PO DAILY [facility] Last Admin: 11/21/17 09:10 Dose: 17 gm Senna (Senokot) 2 tab PO HSPRN PRN PRN Reason: Constipation Senna/Docusate Sodium (Senokot S) 1 tab PO DAILY [facility] Last Admin: 11/21/17 09:11 Dose: 1 tab Sodium Chloride (Flush - Normal Saline) 10 ml IVF Q12HR [facility] Last Admin: 11/21/17 20:14 Dose: 10 ml Sodium Chloride (Flush - Normal Saline) 10 ml IVF PRN PRN PRN Reason: Saline Flush Tamsulosin HCl (Flomax) 0.4 mg PO DAILY [facility] Last Admin: 11/21/17 09:11 Dose: 0.4 mg
[2017-11-21] MEDS ORDERED: Atorvastatin Calcium 40 MG TAB PO SCH (21:00)
[2017-11-22] MEDS: Mometasone/Formoterol 120 PUFF INHALER INH SCH (07:31)
[2017-11-22] MEDS ORDERED: Azithromycin 250 MG TAB PO SCH (09:00)
[2017-11-22] MEDS ORDERED: Cefdinir 300 MG CAP PO SCH (09:00)
[2017-11-22] MEDS: Senokot S 8.6-50 MG TAB PO SCH (09:21)
[2017-11-22] MEDS: Amlodipine 5 MG TAB PO SCH (09:21)
[2017-11-22] MEDS: Famotidine 20 MG TAB PO SCH (09:21)
[2017-11-22] MEDS: Carvedilol 6.25 MG TAB PO SCH (09:23)
[2017-11-22] MEDS: Tamsulosin HCl 0.4 MG CAP PO SCH (09:23)
[2017-11-22] MEDS: Aspirin 81 mg Enteric Coated Tablet PO SCH (09:24)
[2017-11-22] MEDS: Enoxaparin Sodium 40 MG/0.4 ML SYRINGE SC SCH (09:24)
[2017-11-22] MEDS: Polyethylene Glycol 3350 17 GM Packet PO SCH (09:25)
[2017-11-22 09:26] VITALS: BP 141/66
[2017-11-22 12:35] VITALS: TEMP 97
--- NOTE | 2017-11-22 13:39 | PRG ---
DATE OF SERVICE: 11/22/2017 SUBJECTIVE: He says he feels great. OBJECTIVE: VITAL SIGNS: Mr. Hiren Bermudez is afebrile, heart rate is 82, blood pressure 141/66, respiratory rate i s 18, oximetry is 94% on room air. LUNGS: He has very fine crackles in both lung bases. CARDIOVASCULAR: Heart regular rhythm. ABDOMEN: Soft. IMPRESSION: Community-acquired pneumonia, clinically resolving. There is no indication for oxygen t herapy at this time. My opinion, he is stable to go home. There is no reason to ambulate him to see if he desaturates. He will follow up with Dr. Castañeda in 3 weeks with a chest radiograph.
--- NOTE | 2017-11-22 17:54 | DIS ---
DATE OF ADMISSION: 11/18/2017 DATE OF DISCHARGE: 11/22/2017 DISCHARGE DIAGNOSES: 1. Acute respiratory failure with hypoxia. 2. Multifocal pneumonia. 3. Hypertension. 4. Benign prostatic hypertrophy. 5. Hyponatremia. HOSPITAL COURSE: Patient is a very pleasant 87-year-old male who initially presented to the hospital with complaints of nausea and some shortness of breath. The patient underwent a CT abdomen and pelv is in the ER which indicated multifocal right lower lobe pneumonia. Patient initially was started wi th community-acquired IV antibiotics. He continued to progress throughout the hospital stay. Also, an echocardiogram was ordered given the fact that the daughters were concerned about a possible feeli ng unwell was secondary to his cardiac issues. Patient's EF of 50% -55%, mild aortic, tricuspid, and pulmonic regurgitation was noted. The patient continued to improve throughout the hospital stay and was discharged home in the care of patient's daughter who lives with the patient, did consult physic al therapy. However, the patient's daughter stated that he does live with him and therefore, the [facility] therapy did not end up seeing the patient. DISCHARGE MEDICATIONS: Are as the followin. Atorvastatin 80 mg at bedtime. 2. MiraLax. 3. Lisinopril. 4. Coreg. 5. Tamsulosin. 6. Aspirin. 7. Norvasc. 8. Isosorbide. 9. Omeprazole. 10. Omnicef 600 mg p.o. daily. 11. Azithromycin 200 mg p.o. daily and the patient will be discharged home. Follow with PCP and [facility]. PHYSICAL EXAMINATION: VITAL SIGNS: 97.0, 82, 141/62, 18. GENERAL: He is awake, alert, oriented x3, does not appear in distress. CARDIOVASCULAR: S1, S2 present. No murmurs, rubs or gallops. ABDOMEN: Soft, nontender. Bowel sounds are present x2. EXTREMITIES: No edema. We will discharge the patient home. Follow up with PCP.
== END 2017-11-22 13:57 | disposition home or self-care (01) | DRG 193 ==
LOC: ERS 20:05 → ONC 22:10
PROVIDERS: ADMIT Internal Medicine; ATTEND Internal Medicine
DX: J18.9 Pneumonia, unspecified organism (principal); J96.01 Acute respiratory failure with hypoxia; E87.1 Hypo-osmolality and hyponatremia; J44.1 Chronic obstructive pulmonary disease with (acute) exacerbation; I10 Essential (primary) hypertension; N40.0 Benign prostatic hyperplasia without lower urinary tract symptoms; I25.10 Atherosclerotic heart disease of native coronary artery without angina pectoris; D72.829 Elevated white blood cell count, unspecified; E78.5 Hyperlipidemia, unspecified; Z95.1 Presence of aortocoronary bypass graft; Z87.891 Personal history of nicotine dependence
CPT/HCPCS: 36415; 74177; 80048; 81003; 81015; 83605; 85007; 85025; 85027; 87040; 87070; 87205; 87899; 93005; 93306; 94640; 96365; A4216; G8978-GP-CI; G8979-GP-CI; G8980-GP-CI; G8996-GN-CI; G8997-GN-CH; J0456; J0696; J1650; J2920; J7050; J7620

== ENCOUNTER 2018-05-25 05:23 | Inpatient (IN) | payer MEDICARE ==
[2018-05-25] MEDS ORDERED: Enoxaparin Sodium 60 MG/0.6 ML SYRINGE ONE (05:46)
[2018-05-25 06:17] LABS: CKMB 1.9 ng/mL (0-6.6)
[2018-05-25] MEDS ORDERED: Nitroglycerin 0.4 MG TAB (25 Tab Bottle) PO PRN (08:27)
[2018-05-25] MEDS ORDERED: Zolpidem Tartrate 5 MG TAB PO PRN (08:27)
[2018-05-25] MEDS ORDERED: Ondansetron ODT 4 MG TAB PO PRN (08:27)
[2018-05-25] MEDS ORDERED: Acetaminophen 325 MG TAB PO PRN (08:27)
[2018-05-25 10:48] LABS: Troponin I 0.205 ng/mL (< 0.028)
--- NOTE | 2018-05-25 10:53 | HP ---
PRIMARY CARE PROVIDER: Dereck Luna MD. SPRAY OPERATOR: Geovanna Bryant MD. Referred to [facility] by [facility] for chest pain. HISTORY OF PRESENT ILLNESS: The patient with a history of coronary artery disease, bypass 10 years ago, presents with an aching anterior chest pain, last p.m., took a nitroglycerin, no relief, waited 10 minutes, took another one, no relief, waited a little longer, took a third one with relief, presented to the emergency room. Had no sweats or radiation. He is short of breath chronically due to his COPD and has recently been placed on albuterol nebs 4 times a day. He has had episodes of pain in the middle of the night. He has currently been taking a significant number of nitroglycerins, sometimes 2 every night, sometimes during the day. It is difficult to get an exact count of how much nitroglycerin he has been taking. PAST MEDICAL HISTORY: Pertinent for chronic obstructive pulmonary disease, quit smoking a couple of years ago; coronary artery disease, post coronary artery bypass graft in 2007; hypertension; dyslipidemia; prostatism; cholecystectomy; appendectomy; and tonsillectomy. CURRENT MEDICATIONS: 1. Nexium 40 mg a day. 2. Imdur 120 mg twice a day. 3. Coreg 6.25 mg twice a day. 4. Amlodipine 5 mg a day. 5. Lisinopril 20 mg a day. 6. Flomax 0.4 mg 3 times a week. 7. Lipitor 80 mg a day. 8. Aspirin 81 mg a day. 9. Nitroglycerin 0.4 mg p.r.n. 10. Albuterol nebulizer q.i.d. currently. ALLERGIES: LISTED PHENYLEPHRINE. SOCIAL HISTORY: Quit smoking in 2007. . Code status, full. Power of senior trial attorney; Cheryl Batista, his daughter. He lives with her. FAMILY HISTORY: Mother at 72. Father killed in a motor vehicle accident at 52. REVIEW OF SYSTEMS: HEAD: No headaches, dizziness, or fainting. EYES: No double vision, blurred vision, or flashing of light. EARS, NOSE, AND THROAT: No ear pain or drainage. No nasal bleeding. No trouble swallowing. CARDIAC: See present illness. No orthopnea or paroxysmal nocturnal dyspnea. RESPIRATORY: Some dyspnea on exertion. No wheezing. No cough. GASTROINTESTINAL: Constipation with no nausea, vomiting, abdominal pain, or diarrhea. GENITOURINARY: No hematuria or dysuria. MUSCULOSKELETAL: Legs swell a bit. No pain in his joints of note. NEUROLOGIC: No stroke, seizures, or focal weakness. PSYCHIATRIC: No anxiety or depression. SKIN: Some minor bruising on his arms. HEME/LYMPH: No tender swollen lymph nodes in the axilla, inguinal, and cervical area. PHYSICAL EXAMINATION: VITAL SIGNS: Blood pressure 130/60, pulse 86, respirations 20, O2 saturation greater than 92 on room air. GENERAL: He is alert, oriented, and cooperative. HEAD, EYES, EARS, NOSE, AND THROAT: Pupils are equal, round, and reactive to light. Extraocular movements are intact. He has bilateral arcus. Sclerae are white. Tympanic membranes are clear. Nose is clear. Mouth, edentulous. He has dentures. Mucous membranes are clear. NECK: No jugular venous distention, adenopathy, or thyromegaly. CHEST: Clear to auscultation and percussion. HEART: Had regular rate and rhythm. First and second heart sounds are clear. There are no appreciated murmurs or gallops. ABDOMEN: Soft. Bowel sounds are normal. There is no hepatosplenomegaly. No mass. No rebound. No bruits. EXTREMITIES: Reveal no cyanosis, clubbing, or edema. Pulses; carotid, radial, femoral, and dorsalis pedis pulses are intact and symmetric. SKIN: Warm and dry with actinic changes to his forearms. LYMPH: Lymphatic survey reveals no tender swollen lymph nodes in the axilla, inguinal, and cervical area. NEUROLOGIC: Cranial nerves 2 through 12 are intact. Deep tendon reflexes are symmetric. DIAGNOSTIC DATA: EKG read as sinus rhythm, right bundle-branch block with some questionable ST changes in the inferior leads. Reviewed by me. LABORATORY DATA: CBC is unremarkable. Metabolic profile shows a BUN of 29, carbon dioxide of 21, otherwise normal. Cardiac enzymes; 0.10, 0.20. BNP 46. IMAGING DATA: Chest x-ray; old median sternotomy. No cardiomegaly. No CHF. No infiltrate. Reviewed by me. ADMITTING DIAGNOSES: 1. Coronary artery disease with chest pain, with increased use of nitroglycerin. 2. Chronic obstructive pulmonary disease. 3. Hypertension. 4. Dyslipidemia. PLAN: Admit to OBS basis. Continue home medicines. Continue nitroglycerin. Consult Dr. Bryant for second opinion. Job ID: [id number]
[2018-05-25 13:32] LABS: Troponin I 0.343 ng/mL (< 0.028)
[2018-05-25] MEDS ORDERED: Amlodipine 5 MG TAB ONE (14:27)
[2018-05-25] MEDS ORDERED: Aspirin 325 MG TAB ONE (14:27)
[2018-05-25] MEDS: Aspirin 325 MG TAB PO SCH (14:32)
[2018-05-25] MEDS: Amlodipine 5 MG TAB PO SCH (14:32)
[2018-05-25] MEDS: Carvedilol 6.25 MG TAB PO SCH ×2 (15:05→20:40)
[2018-05-25] MEDS ORDERED: Mag-Al 1200 mg/1200 mg/30 ML UDCUP PO PRN (16:54)
[2018-05-25 17:21] LABS: Troponin I 0.612 ng/mL (< 0.028)
--- NOTE | 2018-05-25 18:23 | CON ---
DATE OF CONSULTATION: 05/25/2018 INDICATION FOR CONSULTATION: This is an elderly 87-year-old gentleman with history of coronary artery disease, underwent bypass surgery about 10 years ago, has not seen Cardiology throughout the last 5 years. He has not been seen in the office. He has been at home and occasionally has been taking nitroglycerin at this time, and he also has recently been started on nebulizer treatment and with the nebulizer treatment occasionally, he does get some tachycardia and this may be the etiology of some of the chest discomfort at this time. He also noted today that his nitroglycerin is old and may not be working accurately, eased some of his pain. He has been having this ongoing pain for quite some time and usually it is relieved by the nitroglycerin. Today, he took 2 nitroglycerins. He did have some improvement in the pain, but continued to have discomfort and presented to the emergency room. His EKG shows a right bundle branch block. Cardiac enzymes are relatively indeterminate. However, we will need to trend these upward and see whether or not he is having an PR, because the first troponin was 0.02, second set was 0.2, and these were negative. His other laboratory data does not show any significant abnormalities. His BUN is 29 with a creatinine of 1.0. Lactic acid was 2.6. Magnesium was 1.2 on the low side. His LDL cholesterol was not taken. His hemoglobin was 14.1, WBC of 8.2. His EKG shows right bundle branch block with no acute changes. PAST MEDICAL HISTORY: Significant for bypass surgery, COPD, benign prostatic hypertrophy. He has a history of asthma. He has a history of hypertension, dyslipidemia. He has had benign prostatic hypertrophy. PAST SURGICAL HISTORY: He has had a cholecystectomy, appendectomy, and tonsillectomy. MEDICATIONS: Include, 1. Albuterol (ProAir nebulizer). 2. He also takes prednisone 5 mg a day. 3. He has been started with Levaquin as well as Tylenol. 4. He is on MiraLax due to constipation. 5. Theragran multivitamins. 6. He is on Dulera inhaler. 7. He takes laxative medications. 8. He takes nitroglycerin p.r.n. 9. Lisinopril 20 mg daily. 10. Aspirin 81 mg a day. 11. Imdur 120 mg b.i.d. 12. Nexium 40 mg a day. 13. Coreg 6.25 mg b.i.d. 14. Atorvastatin 80 mg daily. 15. He is also on amlodipine 5 mg p.o. daily. FAMILY HISTORY: Noncontributory. SOCIAL HISTORY: He denies any tobacco abuse. Alcohol, he has occasional beer and wine. He has one beer a day and has wine 2 times a day. ALLERGIES: 1. NONE, BUT HE DOES HAVE SOME INTOLERANCE TO TAMSULOSIN, WHICH HE THINKS IT CAUSES HIM TO ITCH, BUT HE CONTINUES TO TAKE THE MEDICINE. 2. PHENYLEPHRINE. REVIEW OF SYSTEMS: He wear glasses, has hearing aids. He has false teeth. He has COPD. He has shortness of breath. He has constipation. He has mild lower extremity edema, otherwise unremarkable. PHYSICAL EXAMINATION: GENERAL: Reveals an elderly gentleman. He is no acute distress at this time. He is alert and oriented. VITAL SIGNS: Stable. Blood pressure was in the 140 to 160 range systolically, heart rate 90, respiratory rate 18. He is afebrile. HEENT: Shows the head to be normocephalic and atraumatic. NECK: Carotid pulses are present. There were no bruits. CHEST: Clear to auscultation. He did have some slight expiratory wheezes in the left side, but these resolved after cough. CARDIOVASCULAR: Revels a regular rate and rhythm. Normal S1 and S2. I did not hear significant S3 or S4. No significant murmurs, heaves, thrills, bruits, or rubs noted. He has a well-healed midline surgical incision after median sternotomy. ABDOMEN: Soft and nontender. Positive bowel sounds are present. EXTREMITIES: Showed no clubbing, cyanosis, or edema. Pedal pulses are difficult to palpate, more so on the right than the left. I could not palpate left popliteal pulse and also the femoral pulse on the left was also decreased. He has a left femoral bruit. NEUROLOGIC: He appears to be intact. IMPRESSION: 1. Elderly gentleman with possible non-ST segment elevation myocardial infarction with history of coronary artery disease. He has not been seen for several years. We would admit the patient. Continue to trend his cardiac enzymes. He may need to undergo cardiac catheterization or he may need to undergo stress testing. We will continue to monitor medically at this time. He may need to be seen by terminal gauger in order to may be readjust some of his nebulizer treatments. We will also start him on Ranexa and see if this will improve some of his chest discomfort. 2. Hypertension. This is under reasonable control at this time. 3. History of hypercholesterolemia. We will continue his present medications for his statin. 4. History of benign prostatic hypertrophy. He seems to be tolerating his medicines reasonably well and denies any significant complaints at this time. Job ID: [id number]
[2018-05-25] MEDS: Mometasone/Formoterol 120 PUFF INHALER INH SCH (18:43)
[2018-05-25] MEDS ORDERED: Lisinopril 20 MG TAB PO SCH (21:00)
[2018-05-25] MEDS ORDERED: Atorvastatin Calcium 40 MG TAB PO SCH (21:00)
[2018-05-26] MEDS: Mometasone/Formoterol 120 PUFF INHALER INH SCH (07:11)
[2018-05-26 07:41] VITALS: TEMP 97.9
[2018-05-26] MEDS ORDERED: Polyethylene Glycol 3350 17 GM Packet PO PRN (08:22)
[2018-05-26] MEDS ORDERED: PROVENTIL INHALER 6.7 G (200 INHALATIONS) INH PRN (08:22)
--- NOTE | 2018-05-26 08:28 | PDOC.PN ---
- Subjective Encounter Start Date: 05/26/18 Encounter Start Time: 08:26 Subjective: no pain since admission - Objective MAR Reviewed: Yes Vital Signs & Weight: Vital Signs (12 hours) Temp Pulse Resp BP BP BP Pulse Ox 05/26/18 07:38 97.9 F 72 20 148/67 H 96 05/26/18 07:11 77 20 96 05/26/18 04:10 75 18 161/72 H 97 05/26/18 03:35 98.0 F 76 19 161/72 H 94 L 05/25/18 20:41 161/70 H 05/25/18 20:40 161/70 H Weight Weight 126 lb I&O: 05/25/18 05/26/18 05/27/18 06:59 06:59 06:59 Intake Total 360 Output Total 1205 Balance -845 Phys Exam - Physical Examination Neck: no JVD Respiratory: clear to auscultation bilateral Cardiovascular: RRR, no significant murmur Gastrointestinal: soft, positive bowel sounds Musculoskeletal: no edema Dx/Plan (1) NSTEMI (non-ST elevated myocardial infarction) Code(s): I21.4 - NON-ST ELEVATION (NSTEMI) MYOCARDIAL INFARCTION Status: Acute (2) BPH (benign prostatic hyperplasia) Code(s): N40.0 - BENIGN PROSTATIC HYPERPLASIA WITHOUT LOWER URINRY TRACT SYMP Status: Chronic Qualifiers: Lower urinary tract symptom presence: symptoms absent (3) CAD (coronary artery disease) Code(s): I25.10 - ATHSCL HEART DISEASE OF [place] CORONARY ARTERY W/O ANG PCTRS Status: Chronic Qualifiers: Coronary Disease-Associated Artery/Lesion type: [place] artery [place] vs. transplanted heart: [place] heart Associated angina: with unstable angina Qualified Code(s): I25.110 - Atherosclerotic heart disease of [place] coronary artery with unstable angina pectoris (4) COPD (chronic obstructive pulmonary disease) Status: Chronic Qualifiers: COPD type: unspecified COPD (5) HTN (hypertension) Code(s): I10 - ESSENTIAL (PRIMARY) HYPERTENSION Status: Chronic Qualifiers: Hypertension type: essential hypertension - Plan troponins elevated, may need cath, discuss with Dr Bryant -: hold lovenox for now * .
[2018-05-26] MEDS ORDERED: predniSONE 5 MG TAB PO SCH (09:00)
[2018-05-26] MEDS ORDERED: Aspirin 81 mg Enteric Coated Tablet PO SCH (09:00)
[2018-05-26] MEDS ORDERED: Enoxaparin Sodium 40 MG/0.4 ML SYRINGE SC SCH (09:00)
[2018-05-26] MEDS: Aspirin 325 MG TAB PO SCH (09:40)
[2018-05-26] MEDS: Amlodipine 5 MG TAB PO SCH (09:41)
[2018-05-26] MEDS: Carvedilol 6.25 MG TAB PO SCH (09:42)
[2018-05-26] MEDS: PROVENTIL INHALER 6.7 G (200 INHALATIONS) INH SCH ×2 (10:14→14:23)
[2018-05-26 11:00] LABS: Troponin I 0.222 ng/mL (< 0.028)
[2018-05-26 13:28] VITALS: BP 107/55
--- NOTE | 2018-05-26 14:22 | PDOC.CTH ---
Cardiology Progress Note - Subjective The pt seen and examined. No overnight events. No cardiac complaints. - Objective Vital Signs Temp Pulse Resp BP BP Pulse Ox 05/26/18 13:09 97.9 F 93 20 107/55 L 94 L 05/26/18 10:14 79 20 95 05/26/18 07:38 97.9 F 72 20 148/67 H 96 05/26/18 07:11 77 20 96 05/26/18 04:10 75 18 161/72 H 97 05/26/18 03:35 98.0 F 76 19 161/72 H 94 L Weight 126 lb 05/25/18 05/26/18 05/27/18 06:59 06:59 06:59 Intake Total 360 Output Total 1205 Balance -845 - Physical Examination General/Neuro: alert & oriented x3 Neck: no JVD present Lungs: CTA Heart: RRR Abdomen: soft Extremities: other: (No edema) - Telemetry Telemetry Rhythm: SR 80s - Labs Troponin/CKMB CK-MB (CK-2) 2.0 ng/mL (0-6.6) 05/26/18 10:23 Troponin I 0.222 ng/mL (< 0.028) H 05/26/18 10:23 - Assessment/Plan 1. NSTEMI - Trop this am was down; The pt is not good candidate for any further cardiac workup at this moment. Ranexa 500mg BID will prescribe for angina. 2. CAD with hx of CABG - stable; On bblocker, CARMENCITA, ASA 81mg qd, and statin. 3. HTN - stable with current meds 4. COPD - stable with RA 5. Hyperlipidemia - on Statin 6. BPH - MAR reviewed * From Cardiac standpoint, the pt is stable to d/c home. The pt will f/u with Dr Bryant' office within 2-4wks. Review of Systems - Review of Systems Constitutional: reports: no symptoms reported EENTM: reports: no symptoms reported Respiratory: reports: no symptoms reported Cardiac (ROS): reports: no symptoms reported ABD/GI: reports: no symptoms reported : reports: no symptoms reported
--- NOTE | 2018-05-27 07:20 | DIS ---
DATE OF ADMISSION: 05/26/2018 DATE OF DISCHARGE: 05/26/2018 TRANSFER OF CARE: PRIMARY CARE PHYSICIAN: Dr. Dereck Luna. FINAL DIAGNOSES: 1. Mdl-[id number]-ynkmjamli myocardial infarction, type 1. 2. Coronary artery disease. 3. Chronic obstructive pulmonary disease. 4. Benign prostatic hypertrophy. 5. Hypertension. DISCHARGE MEDICATIONS: Same as his home medicines. 1. Albuterol (ProAir HFA) 2 inhalations q.i.d. and q.4 hours p.r.n. 2. Prednisone 5 mg a day. 3. Levaquin 500 mg a day. 4. MiraLAX 17 g in water p.o. p.r.n. 5. Dulera 200/5 one puff b.i.d. 6. Nitroglycerin 0.4 mg sublingual q.5 minutes p.r.n. x3 max. 7. Lisinopril 20 mg at bedtime. 8. Aspirin 81 mg a day. 9. Imdur 120 mg twice a day. 10. Nexium 40 mg a day. 11. Coreg 6.25 mg p.o. b.i.d. 12. Lipitor 80 mg a day. 13. Amlodipine 5 mg a day. ALLERGIES: PHENYLEPHRINE. DIET: Heart healthy. Pending at the time of discharge, nothing. CODE STATUS: Full. HOSPITAL COURSE: The patient developed chest pain, frequent use of sublingual nitroglycerine, presented to the hospital. His EKG, sinus rhythm with right bundle-branch block. Initial troponins 0.1 and 0.2, followup 0.6. He was given Lovenox. His chest pain resolved after reaching the hospital. He was seen in consultation by Dr. Edwin Bryant. On evaluating during the course of the day having reviewed his old films, etc., she decided there was little benefit to him having a repeat cardiac cath. She recommended discharge on his home medicines. This has been relayed to the patient and the family. They are very happy to be going home. A prescription for fresh nitroglycerin has been written. The patient has been recommended to see primary care provider in 1 week. No procedures were performed. Job ID: [id number]
--- NOTE | 2018-05-27 21:49 | EKG ---
Test Reason : Blood Pressure : / mmHG Vent. Rate : 072 BPM Atrial Rate : 072 BPM P-R Int : 138 ms QRS Dur : 140 ms QT Int : 408 ms P-R-T Axes : 032 017 008 degrees QTc Int : 446 ms Normal sinus rhythm Right bundle branch block Abnormal ECG When compared with ECG of 18-NOV-2017 21:43, Abberant conduction is no longer Present QT has shortened Confirmed by Patrick STOKES ([id number]) on 05/27/2018 9:49:04 PM Referred By: BAILEE Confirmed By:Patrick STOKES
--- NOTE | 2018-05-30 13:03 | EKG ---
Test Reason : Blood Pressure : / mmHG Vent. Rate : 087 BPM Atrial Rate : 087 BPM P-R Int : 130 ms QRS Dur : 144 ms QT Int : 384 ms P-R-T Axes : 040 017 006 degrees QTc Int : 462 ms Normal sinus rhythm Right bundle branch block Abnormal ECG #2 No chest pain Confirmed by BEKA CESAR ([id number]), editor trade journal LUZ MARINA JONES ([id number]) on 05/30/2018 1:03:03 PM Referred By: Confirmed By:BEKA CESAR
== END 2018-05-26 16:30 | disposition home or self-care (01) | DRG 282 ==
LOC: ERS 05:23 → ERHOLD 06:05 → INTOOBSV 06:05 → 2NO 15:21 → OBSVTOIN 05-26 08:21
PROVIDERS: ADMIT Internal Medicine; ATTEND Internal Medicine
DX: I21.4 Non-ST elevation (NSTEMI) myocardial infarction (principal); I25.10 Atherosclerotic heart disease of native coronary artery without angina pectoris; Z95.1 Presence of aortocoronary bypass graft; J44.9 Chronic obstructive pulmonary disease, unspecified; Z87.891 Personal history of nicotine dependence; I10 Essential (primary) hypertension; E78.5 Hyperlipidemia, unspecified; N40.0 Benign prostatic hyperplasia without lower urinary tract symptoms; Z79.899 Other long term (current) drug therapy; Z79.82 Long term (current) use of aspirin; Z88.8 Allergy status to other drugs, medicaments and biological substances; H91.93 Unspecified hearing loss, bilateral; K59.00 Constipation, unspecified
CPT/HCPCS: 36415; 82553; 84484; 93005; 93010; 94760; 96372; J1650

== ENCOUNTER 2018-05-28 03:56 | Observation (INO) | payer MEDICARE ==
[2018-05-28 06:05] VITALS: BMI 19.5
[2018-05-28 08:14] LABS: Troponin I 0.118 ng/mL (< 0.028)
[2018-05-28 08:20] VITALS: BP 134/65; TEMP 97.4
[2018-05-28 08:44] LABS: CKMB 1.9 ng/mL (0-6.6)
--- NOTE | 2018-05-28 16:43 | SS ---
PRIMARY CARE PHYSICIAN: Dr. Dereck Luna. CHIEF COMPLAINT: Chest pain. HISTORY OF PRESENT ILLNESS: Mr. Bermudez is a pleasant 87-year-old gentleman, who has a history of coronary artery disease. He was actually recently evaluated in our facility for chest pain. He was seen by Dr. Bryant and he does have a history of known coronary artery disease and at that time, his troponin levels were elevated in the 0.6 range. It was felt that he would not benefit from repeat cardiac catheterization and Ranexa was added to his medical management. He says that when he went home, he was starting to feel better, but then began having chest pain once again. He said it was in the center of his chest and radiating down his right arm. It will last anywhere from 10 to 20 minutes. He would take up to 3 sublingual nitroglycerin as instructed without much improvement in his symptoms. He did have some shortness of breath, but no nausea, no vomiting. As a result, he felt he needed to have something done, so he came to the ER for evaluation. After talking with him for a few minutes, he did realize that there was another medicine that was at the pharmacy that was supposed to be for chest pain that he never picked up. He says he got confused because he was given a prescription for the nitroglycerin and he thought that was the only medication that he needed. It turns out that he never picked up the Ranexa from the pharmacy and since his discharge has never taken that particular medication. Currently, the patient is chest pain free. REVIEW OF SYSTEMS: All systems were reviewed and are negative except for that mentioned in the history of present illness. PAST MEDICAL HISTORY: Significant for COPD, coronary artery disease, hypertension, and hyperlipidemia. PAST SURGICAL HISTORY: He has had a cholecystectomy, appendectomy, and tonsillectomy. ALLERGIES: TO PHENYLEPHRINE AND FLOMAX. SOCIAL HISTORY: He is . He is a former smoker. CODE STATUS: Full code. FAMILY HISTORY: Significant for a father, who in a motor vehicle accident. Mother, no known medical illnesses. CURRENT MEDICATIONS: Include; 1. Dulera 200 mcg/5 mcg 1 inhalation twice a day. 2. Nitrostat 0.4 sublingual p.r.n. 3. Multivitamin once a day. 4. Zestril 20 mg daily. 5. Imdur 120 mg twice daily. 6. Nexium 40 mg daily. 7. Aspirin 81 mg a day. 8. Amlodipine 5 mg daily. 9. ProAir inhaler 2 puffs q.4 hours as needed.. 10. Regular strength Tylenol as needed. PHYSICAL EXAMINATION: GENERAL: He is alert and oriented. He appears to be in no acute distress. VITAL SIGNS: Blood pressure was 138/69, heart rate 92, respiratory rate of 18, and temperature is 97.9. HEENT: Pupils are equal, round, and reactive. Extraocular muscles are intact. Sclerae anicteric. Throat, no erythema, no exudates. NECK: No adenopathy. No bruits. LUNGS: Clear to auscultation. There is no wheezing, no rales, no rhonchi. CARDIOVASCULAR: He had a normal S1 and S2. I did not appreciate an S3 or S4. No murmurs, clicks, or rubs. ABDOMEN: Soft. It is nontender and nondistended. Positive for bowel sounds. No rebound. No guarding. No organomegaly. EXTREMITIES: On his extremities, there is no clubbing, cyanosis, or edema. NEUROLOGIC: Nonfocal. LABORATORY DATA: Lab results, his troponin is 0.0118 here at our facility. He had lab work done in [place], in which his white blood cell count was 6.9, hemoglobin was 13.8, hematocrit was 40.1, and platelet count was 281. Troponin was 0.059 there. He had a sodium of 136, potassium 4.0, chloride was 100, CO2 was 25, BUN of 25, creatinine 0.98, and glucose was 87. The patient had an EKG, which was a right bundle branch block. The rate was 94. This is by my reading. Also had a chest x-ray, in which there was a normal heart size and no infiltrates or effusions. ASSESSMENT AND PLAN: This is a pleasant 87-year-old gentleman, who presents to the emergency room with chest pain. He has a known history of coronary artery disease. He had elevated troponin, but it was not as high as it was on his previous admission. The chest pain likely represents angina, which is stable. Unfortunately, the patient was confused about his medications and never picked up Ranexa from the pharmacy and I suspect that if he were on this medication, his symptoms would improve. Therefore, at this point, since he just recently saw Dr. Bryant less than 2 weeks ago with the same complaints, we will not do any further workup at this time, but instead have reiterated first picking up the prescription for Ranexa and starting on this and then following up with Dr. Bryant as previously recommended. Therefore, the patient will be discharged today. Job ID: [id number]
--- NOTE | 2018-05-30 12:52 | EKG ---
Test Reason : Blood Pressure : / mmHG Vent. Rate : 094 BPM Atrial Rate : 094 BPM P-R Int : 124 ms QRS Dur : 136 ms QT Int : 376 ms P-R-T Axes : 058 031 009 degrees QTc Int : 470 ms Normal sinus rhythm Right bundle branch block Abnormal ECG T wave inversions, V1,V2, seen on EKG from 05/25/2018, new T wave inversion V3 Confirmed by GRACIELA EMMANUEL ([id number]), graphic editor LUZ MARINA JONES ([id number]) on 05/30/2018 12:51:40 PM Referred By: Confirmed By:GRACIELA EMMANUEL
== END 2018-05-28 11:00 | disposition home or self-care (01) ==
LOC: ERS 03:56 → 2SW 06:00
PROVIDERS: ADMIT Hospitalist; ATTEND Hospitalist
DX: R07.9 Chest pain, unspecified (principal); I25.10 Atherosclerotic heart disease of native coronary artery without angina pectoris; J44.9 Chronic obstructive pulmonary disease, unspecified; I10 Essential (primary) hypertension; E78.5 Hyperlipidemia, unspecified; Z87.891 Personal history of nicotine dependence; Z79.82 Long term (current) use of aspirin; Z79.899 Other long term (current) drug therapy; Z88.8 Allergy status to other drugs, medicaments and biological substances
CPT/HCPCS: 82553; 84484; 93005; 99285; G0378; 36415

== ENCOUNTER 2018-06-07 22:45 | Observation (INO) | payer MEDICARE ==
[2018-06-07 23:58] LABS: CKMB 2.1 ng/mL (0-6.6)
[2018-06-08] MEDS ORDERED: Ondansetron PF 4 MG/2 ML Vial IVP PRN ×2 (02:30→10:28)
[2018-06-08] MEDS ORDERED: Ondansetron ODT 4 MG TAB SL PRN (02:30)
[2018-06-08] MEDS ORDERED: Acetaminophen 325 MG TAB PO PRN (02:30)
[2018-06-08 02:40] VITALS: BMI 20.4
[2018-06-08 03:09] LABS: Troponin I 0.179 ng/mL (< 0.028)
[2018-06-08 07:14] LABS: Troponin I 0.325 ng/mL (< 0.028)
[2018-06-08] MEDS ORDERED: Nitroglycerin 0.4 MG TAB (25 Tab Bottle) SL PRN (10:28)
[2018-06-08] MEDS ORDERED: Ondansetron ODT 4 MG TAB PO PRN (10:28)
[2018-06-08] MEDS ORDERED: PROVENTIL INHALER 6.7 G (200 INHALATIONS) INH PRN ×2 (10:28→11:23)
[2018-06-08] MEDS ORDERED: hydrALAZINE 20 MG/ML VIAL SLOW IVP PRN (10:28)
[2018-06-08] MEDS: Nitroglycerin 2% Ointment 1 INCH/1 GM Packet TOP SCH ×2 (14:07→20:54)
--- NOTE | 2018-06-08 15:50 | HP ---
PRIMARY CARE PROVIDER: Dereck Luna MD PRIMARY [place].[employer]. COMMISSIONER: Dr. Edwin Bryant. CHIEF COMPLAINT: Chest pain. HISTORY OF PRESENT ILLNESS: This is an 87-year-old male, who presents to [facility] Emergency Department complaining of stuttering chest pain over the last several days. The patient notably admitted to [facility] on 2 prior occasions in May 2018, on 05/25/2018 and 05/28/2018. The patient also admitted for chest pain with non-ST elevation myocardial infarction noted on most recent admission. The patient was medically managed with increasing oral nitroglycerin dosing as well as initiated on Ranexa 500 mg b.i.d. The patient states he has been compliant with his medication regimen; however, has used the majority of his 30 tablets of nitroglycerin in the last several days. The patient notices chest pain, which is pressure like in the central portion of his chest radiating to the left arm, occurring at rest or with exertion. The patient has some difficulty catching his breath with the pain and has some relief for several minutes after taking sublingual nitroglycerin. The patient denied any specific fever, chills, chest trauma, unilateral weakness, passing out, or prominent reflux symptoms. The patient with a known history of coronary artery disease, status post coronary artery bypass grafting x4 vessels in 2005. The patient has been medically managed and remains fairly active, ambulating with use of a rolling walker, and maintaining his social appointments. In the emergency room, the patient underwent general evaluation with troponin I increasing from 0.030 to 0.325. The patient received sublingual nitroglycerin as well as topical nitrates and was referred to the observation unit for further evaluation. PAST MEDICAL HISTORY: 1. Coronary artery disease. 2. Chronic obstructive pulmonary disease. 3. Hypertension. 4. Dyslipidemia. 5. Gastroesophageal reflux. 6. Benign prostatic hyperplasia. PAST SURGICAL HISTORY: 1. Status post cholecystectomy. 2. Status post coronary artery bypass grafting x4 vessels in 2005. 3. Status post appendectomy. 4. Status post tonsillectomy. CURRENT MEDICATIONS: 1. Nexium 40 mg p.o. daily. 2. Imdur 120 mg p.o. b.i.d. 3. ProAir HFA 2 inhalations q.4 hours p.r.n. 4. Amlodipine 5 mg p.o. daily. 5. Enteric-coated aspirin 81 mg p.o. daily. 6. DuoNeb 3 mL nebulized q.i.d. p.r.n. 7. Lisinopril 20 mg p.o. at bedtime. 8. Multivitamin 1 tablet p.o. daily. 9. Nitroglycerin 0.4 mg sublingually q.5 minutes p.r.n. chest pain. 10. Ranexa 500 mg p.o. b.i.d. ALLERGIES: TO PHENYLEPHRINE AND TAMSULOSIN. FAMILY HISTORY: Mother at the age of 72. Father of complications of a motor vehicle accident at 52. SOCIAL HISTORY: The patient is , resides in [place], [place]. Quit smoking in 2007. No current alcohol, tobacco, or illicit drug use. Ambulatory with the use of a rolling walker. Medical power of securities attorney is the patient's daughter, Varsha Batista. REVIEW OF SYSTEMS: CONSTITUTIONAL: Negative for weight loss or gain, ability to conduct usual activities. SKIN: Negative for rash, itching. EYES: Negative for double vision, pain. ENT/MOUTH: Negative for nose bleeding, neck stiffness, pain, tenderness. CARDIOVASCULAR: Negative for palpitations, dyspnea on exertion, orthopnea. RESPIRATORY: Negative for shortness of breath, wheezing, cough, hemoptysis, fever or night sweats. GASTROINTESTINAL: Negative for poor appetite, abdominal pain, heartburn, nausea, vomiting, constipation, or diarrhea. GENITOURINARY: Negative for urgency, frequency, dysuria, nocturia. MUSCULOSKELETAL: Negative for pain, swelling. NEUROLOGIC/PSYCHIATRIC: Negative for anxiety, depression. ALLERGY/IMMUNOLOGIC: Negative for skin rash, bleeding tendency. Otherwise negative except as stated per HPI. PHYSICAL EXAMINATION: VITAL SIGNS: Currently; blood pressure 153/67, pulse 77, respiratory rate 16, temperature 97.6 degrees Fahrenheit, and O2 saturation 97% on 2 L/minute via nasal cannula. GENERAL APPEARANCE: This is an 87-year-old male, alert and oriented x3, pleasant, responsive, in no acute distress. HEENT: Pupils are equal, round, and reactive to light and accommodation. Extraocular muscles are intact. No scleral icterus. No conjunctival injection. Nares patent. OP is clear. Teeth in fair repair. NECK: Supple. No cervical adenopathy. No thyromegaly. No carotid bruits. No JVD appreciated. Cervical spine with full active and passive range of motion. No meningeal signs appreciated. CHEST: Occasional expiratory wheeze in the bases bilaterally. CARDIOVASCULAR: S1 and S2 without noted murmur, rub, or gallop. ABDOMEN: Rounded, soft, nontender, and nondistended. Bowel sounds are positive in all 4 quadrants. There is no hepatosplenomegaly. No abdominal bruits. No rebound or guarding appreciated. EXTREMITIES: Warm and dry with fair turgor. No clubbing, cyanosis, or asymmetric edema appreciated. Pulses are palpable distally at the dorsalis pedis, posterior tibial, and popliteal arteries bilaterally. Capillary refill less than 2 seconds. NEUROLOGIC: Cranial nerves 2 through 12 are grossly intact. No focal or lateralizing signs appreciated. PERTINENT LAB AND X-RAY FINDINGS: Sodium 133, BUN 17, creatinine 1.17, estimated GFR 60, calcium 9.0, and magnesium 2.1. Troponin I ranged between 0.030 to 0.325. BNP 29. CBC showed a white blood cell count of 7.7, hemoglobin 13, hematocrit 38, and platelet count 251. Portable chest x-ray dated 06/07/2018 showed no acute cardiopulmonary process. EKG dated 06/07/2018 by my interpretation shows sinus mechanism with heart rates in the 90s. Attenuated R-waves noted in the precordial leads. Right bundle branch block pattern noted. Frequent PVCs noted. ASSESSMENT AND PLAN: 1. Non-ST elevation myocardial infarction. The patient will be observed on the telemetry unit. We will consult Cardiology Service for consideration of cardiac catheterization with maximal medical therapy, but persistent angina. Continue aspirin 325 mg daily with Ranexa 500 mg p.o. b.i.d. Sublingual and transdermal nitroglycerin. 2. Unstable angina. See #1 above. We will continue medical therapy pending cardiac catheterization. 3. Coronary artery disease. Longstanding coronary artery disease on medical therapy. We will continue medical therapy as outlined previously. Hold anticoagulation. Continue aspirin 325 mg daily. 4. Hypertension. Continue home blood pressure regimen and monitor clinical response. 5. Chronic obstructive pulmonary disease. No current evidence of an acute exacerbation. Continue bronchodilator therapy. Oxygen as needed to maintain O2 saturations greater than or equal to 90%. 6. Prophylaxis. Sequential compression devices while in bed. Pepcid 20 mg p.o. b.i.d. 7. Code status is full. Surrogate medical decision maker is Varsha Batista. Job ID: [id number]
--- NOTE | 2018-06-08 16:08 | CON ---
DATE OF CONSULTATION: 06/08/2018 TYPE OF CONSULTATION: Cardiology. LOCATION: Room 246. PRIMARY CARE DOCTOR: Dereck Luna MD. PRIMARY PLANNING SPECIALIST: Geovanna Bryant MD. REFERRING PHYSICIAN: Dr. Aly. REASON FOR CARDIOLOGY CONSULT: Unstable angina and elevated troponins. HISTORY OF PRESENT ILLNESS: Mr. Bermudez is a very pleasant 87-year-old male with significant long history of unstable angina and coronary artery disease with CABG x5 in 2007, hypertension, and COPD. The patient has been in the hospital twice prior to this admission within 2 months for unstable angina. Per patient's family, the patient has been taking nitro almost 3 or 4 times a day and since he was discharged from hospital on May 28, he is almost finishing 1 bottle of nitro at this time. Last 24 hours, he took a total of 6 tablets of nitroglycerin. According to family member, the patient needs nitro every time he walks in short distance, but he took 3 nitro last night due to achiness all over his chest which radiated to the bilateral arms. The patient decided to present to the emergency department for further evaluation and treatment for chest pain. The patient denied any shortness of breath, lightheadedness, dizziness, nausea, vomiting, or any other cardiac complaints during the episode. At this moment, during the cardiology assessment, the patient denies any chest pain, shortness of breath, dizziness, lightheadedness, or any other cardiac complaints. The patient underwent CABG x5 in 2007 and echocardiogram was done in November 2017 with EF of 50% to 55%, mildly-dilated left atrium, trace mitral valve regurgitation, mild aortic valve regurgitation, mild tricuspid regurgitation, and mild pulmonic regurgitation. The patient had EKG done at Dr. Bryant' office in the June 03, 2018, showing the sinus rhythm with right bundle branch block with heart rate of 85. PAST MEDICAL HISTORY: 1. Coronary artery disease. 2. Hypertension. 3. Hyperlipidemia. 4. COPD. 5. BPH. PAST SURGICAL HISTORY: 1. CABG x5 in 2007. 2. Cholecystectomy. 3. Appendectomy. 4. Tonsillectomy. ALLERGIES: THE PATIENT IS ALLERGIC TO PHENYLEPHRINE AND TAMSULOSIN. MEDICATIONS: Home medications, 1. Nitroglycerin 0.4 sublingual every 5 minutes as needed. 2. Aspirin 81 mg once a day. 3. Senna one tablet once a day. 4. Amlodipine 5 mg once a day. 5. Isosorbide mononitrate 120 mg twice a day. 6. Nexium 40 mg once a day. 7. Multivitamin once a day. 8. Lisinopril 20 mg once a day. 9. Albuterol 2 puffs every 4 hours as needed. 10. Ranexa 500 mg twice a day. 11. DuoNeb 4 times a day as needed. REVIEW OF SYSTEMS: A 12-point review of systems is negative unless otherwise mentioned in the HPI. He has a good appetite. He uses a walker for fall prevention. PHYSICAL EXAMINATION: VITAL SIGNS: Blood pressure 153/67, temperature 97.6, pulse 70 with sinus rhythm with right bundle branch block, respiratory rate 16, O2 saturation 100% on 1.5 nasal cannula. GENERAL: The patient is alert and oriented x4, not in acute distress. EYES: He wears glasses. Extraocular muscle movements are intact. ENT AND MOUTH: Oral and nasal mucosa moist without lesions. NECK: Supple. No JVD. Normal range of motion. RESPIRATORY: Clear to auscultation bilaterally, but diminished at the bases. CARDIOVASCULAR: Regular rate and rhythm. Normal S1 and S2. No S3 or S4. No significant murmurs, heaves, or thrill noted. Carotid pulses are present without bruits or thrill. EXTREMITIES: 2+ pulses in the bilateral upper and lower extremity. No edema in the lower extremities. ABDOMEN: Soft, nontender. No masses palpated. Bowel sounds are present. SKIN: Warm and dry. No lesion or rash noted. There are several bruises on the bilateral upper arms. MUSCULOSKELETAL: The patient is able to move all extremities. He walks with walker. PSYCHIATRIC: The patient is alert and oriented x4 and mood appropriate. NEURO: The patient is alert and oriented x4. Nonfocal. LABORATORY DATA: WBC 7.7, hemoglobin 13.3, hematocrit 38.0, and platelets 251. Sodium 133, potassium 4.3, BUN 17, creatinine 1.17, glucose 128, lactic acid 2.6, AST 15, ALT 13. Troponin 0.030, 0.179, and 0.325. The patient's 12-point EKG in the ER showed sinus rhythm with PVCs and with right bundle branch block, the heart rate is 100. ASSESSMENT AND PLAN: 1. [id number] myocardial infarction. The patient's troponin is trending up, since the patient is admitted in the hospital three times. The patient's plan is to undergo cardiac cauterization by Dr. Bryant. At this moment, the patient is asymptomatic. The patient is being on the telemetry record which shows no abnormal rhythm. No ST-segment or T-wave inversion. The patient has been on aspirin 325 mg once a day. The patient is on lisinopril 20 mg once a day and Ranexa 500 twice a day. The patient has nitro patch every 8 hours. He is not on beta-mami due to history of chronic obstructive pulmonary disease. 2. Hypertension. The patient's blood pressure is stable with the current medications. 3. Chronic obstructive pulmonary disease. The patient is stable with 1.5 L nasal cannula. 4. Hyperlipidemia. He is not on statin at this moment. After cardiac catheterization, if the patient has any coronary artery disease, we would like to start some statin medication for this patient. 5. BPH, stable at this moment. We will defer to primary care doctor to manage this condition. Thank you very much for allowing the cardiology service to participate in the care of this patient. We will follow along the patient's care team and make further evaluation as appropriate. Job ID: [id number]
[2018-06-08] MEDS ORDERED: Communication Order-Pharmacy FS SCH (17:00)
[2018-06-08] MEDS: Acetaminophen 500 MG TAB PO PRN (17:14)
[2018-06-08] MEDS: Famotidine 20 MG TAB PO SCH (20:50)
[2018-06-08] MEDS: Lisinopril 20 MG TAB PO SCH (20:50)
[2018-06-08] MEDS ORDERED: Non-Formulary Item 1 EACH (Isosorbide Mononitrate [Imdur Er] 120 MG) PO SCH (21:00)
[2018-06-09] MEDS: Nitroglycerin 2% Ointment 1 INCH/1 GM Packet TOP SCH ×3 (06:01→21:47)
[2018-06-09 06:08] LABS: Anion Gap 12 mmol/L (10-20); BUN (Urea Nitrogen) 12 mg/dL (8.4-25.7); Calc. Creatinine Clearance 52 mL/min (70-130); Calcium 8.6 mg/dL (7.8-10.44); Carbon Dioxide 24 mmol/L (23-31); Chloride 100 mmol/L (98-107); Estimated GFR-MDRD 83; Glucose 81 mg/dL (83-110); Potassium 4.1 mmol/L (3.5-5.1); Sodium 132 mmol/L (136-145)
[2018-06-09 06:09] LABS: Band 14 % (5-11); Eosinophils 8 % (0-10); Hemoglobin 12.7 g/dL (14.0-18.0); Lymphocytes 22 % (21-51); MDiff Complete? YES; Mean Corpuscular HGB CONC 34.4 g/dL (32.0-36.0); Mean Corpuscular Hemoglobin 32.9 pg (27.0-31.0); Mean Corpuscular Volume 95.5 fL (78.0-98.0); Mean Platelet Volume 6.4 fL (7.4-10.4); Monocytes 5 % (0-10); Neutrophil 51 % (42-75); PLT Morphology Comment Appears Adequate; Platelet Count 216 thou/uL (130-400); RBC Distribution Width 12.4 % (11.5-14.5); Red Blood Cell (RBC) Count 3.86 mill/uL (4.70-6.10); White Blood Cell (WBC) Count 5.1 thou/uL (4.8-10.8)
[2018-06-09] MEDS: Amlodipine 5 MG TAB PO SCH (06:21)
[2018-06-09] MEDS: Multivit, Therapeutic 1 TAB PO SCH (06:21)
[2018-06-09] MEDS: Senokot S 8.6-50 MG TAB PO SCH (06:21)
[2018-06-09] MEDS: Famotidine 20 MG TAB PO SCH ×2 (06:22→22:10)
--- NOTE | 2018-06-09 07:46 | CON ---
DATE OF CONSULTATION: 06/08/2018 ADDENDUM: Please refer the note already dictated by nurse practitioner, Yenny Cardenas. INDICATION FOR CONSULTATION: An 87-year-old with history of known coronary artery disease, who is presenting for the third time with complaints of chest pain. He was taking nitroglycerin at home. He took as many as 6 nitroglycerins yesterday. He still continued to have some chest discomfort. He was in the hospital. His EKGs did not show any acute changes. He does have an incomplete right bundle-branch block. He recently was in the hospital where on a stress testing, he was found to have a normal stress test without evidence of ischemia. Approximately 10 years ago, he underwent bypass surgery with 5 vessel bypass with a HANCOCK to the left anterior descending artery. He had two first and second obtuse marginal branches anastomosed, and also had a bypass, and he also had a right coronary artery and a diagonal branch anastomosed. He had two proximal aortotomies performed with a HANCOCK. We have had no indication that he has had any significant followup. He has not been followed for the last 5 years, but then presented to the hospital just recently. At this time, he is relatively comfortable. His cardiac enzymes were indeterminate at 0.03 and then increased up to 0.179 and now to 0.325 [address] possible [address]-segment elevation myocardial infarction. At this time, he is relatively comfortable. He has no other symptoms or complaints at this time. He is still on the same medications, but given this is the third admission for this gentleman and his complaints that do appear to be cardiac in nature, he has had pain down the arms also. I advised him to undergo a cardiac catheterization. Unfortunately, he may be somewhat difficult patient for the procedure as he does have also severe peripheral vascular disease. With his last cardiac catheterization, he was found to have significant iliac disease especially on the right side. He had diffuse atherosclerotic disease involving the distal aorta. Just prior to the bifurcation, he had some ulcerations of the distal aorta with atherosclerotic disease, but there was no flow-limiting disease noted. 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 The internal iliac was significantly stenosed. The left external iliac also had diffuse plaque formation, was tortuous, but no significant flow-limiting disease was noted until the bifurcation into the superficial femoral artery and the profunda femoral where there appeared to be a stenotic area just to the distal end of the common femoral artery on the left side. On the right side, the common femoral artery appeared to be relatively patent. However, there was significant stenosis as noted above in the right iliac. We hope we will be able to obtain access by cardiac catheterization in this gentleman with his severe peripheral vascular disease. I did discuss with him the possibilities of repeat cardiac catheterization to evaluate the saphenous vein graft. Previously, his [place] vessels had significant disease, they were very small vessels. He would not be a candidate for redo bypass surgery, but may be a candidate to undergo stent placement, but I suspect he has had progression of his [place] coronary artery disease, of his [place] vessels, and there may not be anything that we can offer this patient, but he is more than willing to proceed with the cardiac catheterization and since this is his third admission for chest pain, despite medical management, this may be the only option to determine whether or not he has any vessels that may need revascularization if this is the etiology of his chest discomfort. PAST MEDICAL HISTORY: Please refer to the note dictated by the nurse practitioner. SOCIAL HISTORY: Please refer to the note dictated by the nurse practitioner. FAMILY HISTORY: Please refer to the note dictated by the nurse practitioner. REVIEW OF SYSTEMS: Please refer to the note dictated by the nurse practitioner. MEDICATIONS: Please refer to the note dictated by the nurse practitioner. ALLERGIES: PLEASE REFER TO THE NOTE DICTATED BY THE NURSE PRACTITIONER. PHYSICAL EXAMINATION: GENERAL: This is a well-developed, well-nourished gentleman, who is in no acute distress at this time. He is alert. He is oriented. VITAL SIGNS: Stable. Blood pressure is 127/60, he is afebrile. Heart rate is 82 and regular, respiratory rate 16. HEENT: Shows head to be normocephalic and atraumatic. CHEST: Clear to auscultation without rales, rhonchi, or wheezing. CARDIOVASCULAR: Reveals a regular rate and rhythm at this time. There are no significant murmurs, heaves, thrills, bruits, or rubs. ABDOMEN: Soft and nontender. Positive bowel sounds are present. He has abdominal bruit noted. He has bilateral femoral bruits noted. Femoral pulses are difficult to palpate. I cannot palpate pedal pulses. NEUROLOGIC: The patient appears to be fully intact for someone of his age. He is still very mentally intact. He also has what appears to be normal strength and normal tone. I did not hear any carotid bruits. SKIN: Warm and dry. IMPRESSION AND PLAN: 1. Elderly gentleman with possible non ST-segment elevation myocardial infarction. This is his third admission for such symptoms. He does have severe peripheral vascular disease and we have been somewhat hesitant to proceed with cardiac catheterization, especially in view of the fact he had a normal stress test approximately two weeks ago, but since he continues to have chest pain, which is relieved by nitroglycerin, we will suggest a cardiac catheterization to see if there is anything that we may offer to this patient. 2. Hypertension, this is under good control at this time. 3. Hypercholesterolemia, we will continue his present medications with his statin medications. 4. Benign prostatic hypertrophy, he seems to be tolerating the medications well and has no symptoms at this time. I have explained the procedure risks to him to include bleeding, infection, possible myocardial infarction, CVA, renal insufficiency, allergic contrast reaction, the possibility of , and he agrees to proceed. We will plan for cardiac catheterization tomorrow. Job ID: [id number]
[2018-06-09] MEDS ORDERED: Iopamidol 370 76% 100 ML VIAL ONE (09:00)
[2018-06-09] MEDS ORDERED: Senokot S 8.6-50 MG TAB PO SCH (09:00)
[2018-06-09] MEDS ORDERED: Iopamidol 370 76% 50 ML VIAL FS ONE (09:00)
[2018-06-09] MEDS ORDERED: Aspirin 325 MG TAB PO SCH (09:00)
[2018-06-09] MEDS ORDERED: Lidocaine 1% (PF) 30 ML VIAL ONE (13:15)
[2018-06-09] MEDS ORDERED: Heparin 10,000 UNITS/1 ML VIAL ONE (14:40)
[2018-06-09] MEDS ORDERED: TICAGRELOR 90 MG TABLET ONE (15:41)
[2018-06-09] MEDS ORDERED: Acetaminophen 500 MG TAB ONE (17:52)
[2018-06-09] MEDS: Lisinopril 20 MG TAB PO SCH (22:09)
[2018-06-10] MEDS: Acetaminophen 500 MG TAB PO PRN (02:21)
[2018-06-10 04:58] LABS: #Eosinphils 0.3 thou/uL (0.0-0.7); #Lymphocytes 0.6 thou/uL (1.20-3.40); #Monocytes 0.5 thou/uL (0.11-0.59); #Neutrophils 6.1 thou/uL (1.40-6.50); %Basophils 0.2 % (0.0-1.0); %Eosinophils 3.4 % (0.0-10.0); %Lymphocytes 8.5 % (21.0-51.0); %Monocytes 6.4 % (0.0-10.0); %Neutrophils 81.6 % (42.0-75.0); Hemoglobin 12.8 g/dL (14.0-18.0); Mean Corpuscular Hemoglobin 33.1 pg (27.0-31.0); Mean Corpuscular Volume 94.6 fL (78.0-98.0); Mean Platelet Volume 6.3 fL (7.4-10.4); Platelet Count 206 thou/uL (130-400); RBC Distribution Width 12.4 % (11.5-14.5); Red Blood Cell (RBC) Count 3.88 mill/uL (4.70-6.10); White Blood Cell (WBC) Count 7.5 thou/uL (4.8-10.8)
[2018-06-10 05:23] LABS: ALT (SGPT) 12 U/L (8-55); AST (SGOT) 17 U/L (5-34); Alkaline Phosphatase 91 U/L (40-150); Anion Gap 9 mmol/L (10-20); BUN (Urea Nitrogen) 13 mg/dL (8.4-25.7); Bilirubin, Total 1.4 mg/dL (0.2-1.2); Calc. Creatinine Clearance 58 mL/min (70-130); Calcium 8.5 mg/dL (7.8-10.44); Carbon Dioxide 23 mmol/L (23-31); Chloride 99 mmol/L (98-107); Estimated GFR-MDRD Greater than 90; Globulin 2.5 g/dL (2.4-3.5); Glucose 122 mg/dL (83-110); Protein, Total 5.5 g/dL (5.8-8.1); Sodium 127 mmol/L (136-145)
[2018-06-10] MEDS: Nitroglycerin 2% Ointment 1 INCH/1 GM Packet TOP SCH (05:45)
[2018-06-10 08:17] VITALS: BP 131/60; TEMP 97.4
[2018-06-10] MEDS: Amlodipine 5 MG TAB PO SCH (08:58)
[2018-06-10] MEDS: Senokot S 8.6-50 MG TAB PO SCH (08:58)
[2018-06-10] MEDS: Famotidine 20 MG TAB PO SCH (08:58)
[2018-06-10] MEDS: Multivit, Therapeutic 1 TAB PO SCH (08:58)
--- NOTE | 2018-06-10 09:06 | PDOC.CTH ---
Cardiology Progress Note - Subjective The pt seen and examined. No overnight events. No cardiac complaints. The pt voiced understanding the result from yesterday LHC. - Objective Vital Signs Temp Pulse Resp BP BP BP Pulse Ox 06/10/18 08:58 85 131/60 06/10/18 08:03 97.4 F L 85 18 131/60 96 06/10/18 06:52 96 06/10/18 06:50 99 16 96 06/10/18 04:23 97.8 F 92 16 112/60 96 06/09/18 22:24 98 16 98 06/09/18 22:09 175/92 H 06/09/18 21:31 97.5 F L 106 H 16 136/97 H 97 Admit Weight 142 lb 1.6 oz Weight 196 lb 11.2 oz 06/09/18 06/10/18 06/11/18 06:59 06:59 06:59 Intake Total 1320 400 Output Total 1200 350 Balance 120 50 - Physical Examination General/Neuro: alert & oriented x3 Neck: no JVD present Lungs: CTA Heart: RRR Abdomen: soft Extremities: other: (No edema) - Telemetry Telemetry Rhythm: SR - Labs Result Diagrams: 06/10/18 04:28 06/10/18 04:28 Troponin/CKMB CK-MB (CK-2) 2.1 ng/mL (0-6.6) 06/07/18 23:08 Troponin I 0.325 ng/mL (< 0.028) H* 06/08/18 05:34 - Assessment/Plan 1. NSTEMI with S/p LHC on 06/09/18 with 99% stenosis in diag 1 with failed to PTCA - Ranexa was increased from 500mg to 1000mg BID. On Lisinopril, Imdur 120mg BID, and ASA 325mg Qd. Not on BBlocker due to hx of COPD. 2. hx of CABG in 2005 3. HTN - stable 4. COPD - stable with RA 5. Severe PAD - stable MAR reviewed * From Cardiac standpoint, the pt is stable to d/c home. The pt will f/u with Dr Bryant' office within 1 month. Review of Systems - Review of Systems Constitutional: reports: no symptoms reported EENTM: reports: no symptoms reported Respiratory: reports: no symptoms reported Cardiac (ROS): reports: no symptoms reported ABD/GI: reports: no symptoms reported : reports: no symptoms reported Musculoskeletal: reports: no symptoms reported
--- NOTE | 2018-06-10 14:52 | DIS ---
DATE OF ADMISSION: 06/08/2018 DATE OF DISCHARGE: 06/10/2018 DISCHARGE DIAGNOSES: 1. [id number] myocardial infarction. 2. Coronary artery disease, medical management. 3. Unstable angina. 4. Hypertension, stable. 5. Chronic obstructive pulmonary disease without exacerbation. 6. Hyponatremia, chronic. CONSULTATIONS: Dr. Bryant with Cardiology Service. PERTINENT LABORATORY AND X-RAY FINDINGS: Sodium ranged between 127 to 132, creatinine ranged between 0.78 to 0.87. Troponin I ranged between 0.030 to 0.325. Portable chest x-ray, dated 06/07/2018, showed no acute cardiopulmonary process. Ectasia of the thoracic aorta noted. Cardiac catheterization, dated 06/09/2018, showed multivessel coronary artery disease. Ejection fraction of 55%. Recommend medical management. HOSPITAL COURSE: The patient was observed on the Telemetry Unit after initially presenting with chest pain in the context of known coronary artery disease. The patient was noted with elevated troponin I consistent with [id number] myocardial infarction. The patient was evaluated by the Cardiology Service, undergoing left heart catheterization. However, due to the extensive calcification of his arteries in addition to tortuosity of the arterial system, no specific intervention was successful. The patient was noted with preserved ejection fraction of 55% with Cardiology recommending maximal medical management given the patient's comorbid status and advanced stage. The patient overall remained clinically stable under observation with telemetry monitoring showing a sinus mechanism without evidence of acute arrhythmia or dysrhythmia. The patient overall clinically stable, tolerating regular oral intake with stable vital signs. I have examined the patient at the time of discharge and discussed followup instructions. The patient and family verbalized understanding and in agreement and ready for discharge on 06/10/2018. DISCHARGE MEDICATIONS: 1. ProAir HFA 2 inhalations q.4 hours p.r.n. 2. Amlodipine 5 mg 1 tablet p.o. daily. 3. Enteric-coated aspirin 81 mg p.o. daily. 4. Nexium 40 mg p.o. daily. 5. DuoNeb 3 mL nebulized q.i.d. p.r.n. 6. Isosorbide mononitrate 120 mg p.o. b.i.d. 7. Lisinopril 20 mg p.o. at bedtime. 8. Multivitamin 1 tablet p.o. daily. 9. Nitroglycerin 0.4 mg sublingually q.5 minutes p.r.n. chest pain. 10. Ranexa 1000 mg p.o. b.i.d. FOLLOWUP: The patient to follow up with Dr. Geovanna Bryant and to call our office for appointment, time and date. The patient to follow up with Dr. Dereck Luna within 7 days of discharge. CONDITION ON DISCHARGE: Stable. ACTIVITY: Ad-ozzie. DIET: Regular. CODE STATUS: Full. DISPOSITION: Home on 06/10/2018. Job ID: [id number]
--- NOTE | 2018-06-10 17:57 | EKG ---
Test Reason : Blood Pressure : / mmHG Vent. Rate : 092 BPM Atrial Rate : 092 BPM P-R Int : 148 ms QRS Dur : 154 ms QT Int : 414 ms P-R-T Axes : 071 066 024 degrees QTc Int : 511 ms Sinus rhythm with occasional Premature ventricular complexes Right bundle branch block Abnormal ECG When compared with ECG of 07-JUN-2018 22:54, Premature ventricular complexes are now Present Confirmed by MARTINEZ CONROY ([id number]) on 06/10/2018 5:57:28 PM Referred By: KIKE Confirmed By:MARTINEZ CONROY
== END 2018-06-10 09:46 | disposition home or self-care (01) ==
LOC: ERS 22:45 → 2SW 06-08 02:15
PROVIDERS: ADMIT Internal Medicine; ATTEND Internal Medicine
PROC: 4A023N7 Measurement of Cardiac Sampling and Pressure, Left Heart, Percutaneous Approach (ICD-10-PCS; principal; 2018-06-09)
PROC: B2111ZZ Fluoroscopy of Multiple Coronary Arteries using Low Osmolar Contrast (ICD-10-PCS; 2018-06-09)
PROC: B2131ZZ Fluoroscopy of Multiple Coronary Artery Bypass Grafts using Low Osmolar Contrast (ICD-10-PCS; 2018-06-09)
DX: I21.4 Non-ST elevation (NSTEMI) myocardial infarction (principal); I25.710 Atherosclerosis of autologous vein coronary artery bypass graft(s) with unstable angina pectoris; I25.110 Atherosclerotic heart disease of native coronary artery with unstable angina pectoris; J44.9 Chronic obstructive pulmonary disease, unspecified; E78.5 Hyperlipidemia, unspecified; I10 Essential (primary) hypertension; E87.1 Hypo-osmolality and hyponatremia; I73.9 Peripheral vascular disease, unspecified; E78.00 Pure hypercholesterolemia, unspecified; N40.0 Benign prostatic hyperplasia without lower urinary tract symptoms; K21.9 Gastro-esophageal reflux disease without esophagitis; Z87.891 Personal history of nicotine dependence; Z79.82 Long term (current) use of aspirin; Z79.899 Other long term (current) drug therapy; Z88.8 Allergy status to other drugs, medicaments and biological substances; Z95.1 Presence of aortocoronary bypass graft; Z95.5 Presence of coronary angioplasty implant and graft
CPT/HCPCS: 80048; 80053; 82553; 84484 ×3; 85007; 85025; 85027; 85347 ×3; 93005 ×2; 93455; 93567; 94640 ×4; 94760 ×2; 99285; C1769 ×2; C1887; G0378 ×2; 36415; 93010; J1644; J2001; J7620; Q0162